=== PATIENT | female | born 1935 | race Caucasian/White ===

== ENCOUNTER → 2016-07-17 | Outpatient (CLI) | payer MEDICARE ==
[~2016-07-17] MED LIST: ALDACTONE25 MG; ALDACTONE25 MG PO; ALIGN4 MG PO; ARTIFICIAL TEAR15 M5 OPHTH; ASPIR-LOW81 MG PO; ASPIRIN (CHILDR81 MG; BODY PO; CALCIUM 600 +1 EA10 PO; CLEOCIN150 MG PO; CLIMARA0.0375 MG; ERY-TAB250 MG; ERY-TAB250 MG PO; ESTRACE(ESTRADIO1 MG; ESTRACE(ESTRADIO1 MG PO; EXCILON1 EAC2; EXELON1 EAC1 TRANS; FISH OIL 1,0001 EAC1 PO; FLEXERIL10 MG; GRISEOFULV125 MG/5 M; GRISEOFULV125 MG/5 M PO; HAIR PO; LASIX20 MG PO; MAG-OX-400(241400 MG PO; MIRTAZAPINE7.5 MG; MULTIVITAMINS1 EAC2 PO; MYCOSTATIN OINT30 GM TOP; OCEAN NASAL) (A44 ML NOSE; PERCOCET 5-3251 EACH PO; POLY VI SOL DRO50 ML; PRINIVIL (ZESTR20 MG; PRINIVIL (ZESTR20 MG PO; PRINIVIL (ZESTRI5 MG PO; PROTONIX40 MG PO; REMERON 30 MG30 MG; REMERON 30 MG30 MG PO; RESTASIS1 EACH; RESTASIS1 EACH OPHTH; THERA-VITE W/ B1 TAB; TOPROL XL25 MG PO; TUMS REGULAR ST1 TAB; TYLENOL ARTHRI650 MG PO; TYLENOL)(FEVERA80 MG; TYLENOL325 MG; ULTRAM50 MG; ULTRAM50 MG PO; VANCOCIN HCL250 MG PO; VANCOCIN ORAL250 MG PO; VITAMIN D-32000 UNI1; VITAMIN D2000 UNIT PO; VITAMIN D3400 UNIT; ZESTRIL2.5 MG; ZETIA10 MG; ZOCOR10 MG; ZOCOR40 MG; ZOCOR40 MG PO; ZYLOPRIM300 MG; ZYLOPRIM300 MG PO; [UNRECOGNIZED DRUG - OTHER] PO
== END | disposition disaster alternative care site (69) ==
LOC: GRAD 12:44
DX: M79.671 Pain in right foot (principal); R60.9 Edema, unspecified; M79.89 Other specified soft tissue disorders

== ENCOUNTER 2016-07-21 13:00 | Inpatient (IN) | payer MEDICARE ==
[~2016-07-21] VITALS: Ht 170.2 cm; Wt 80.0 kg
--- NOTE | ~2016-07-21 | CON ---
PATIENT'S NAME: ALLYN JARRELL [facility] AGE: 81 Y [address] ROOM: [place] [address] LOCATION: GPCU ADMIT DATE: 07/22/2016 Consultation DISCHARGE DATE: FAMILY PHYSICIAN: Low Jennings MD ATTENDING PHYSICIAN: SHANNON KEARNEY DATE OF CONSULTATION: 07/22/2016 REFERRING PHYSICIAN: NORBERTO Zhu. REASON FOR VISIT: Right posterior thigh wound. HISTORY OF PRESENT ILLNESS: This is an 80-year-old female patient who was admitted to [facility] with right foot gangrene. She is [facility] to [facility] and was last there in August 2012. She has a history of chronic venous insufficiency, lower leg edema, polio, fibromyalgia, hypertension, and hyperlipidemia. She has worn Unna boots in the past. She currently has no venous ulcers. She normally wears thigh-high Jobst compression stockings. She is nonambulatory due to polio and uses a motorized scooter. She has a leather chair cushion to her wheelchair. She is unaware that she has scabbing to her right ischial tuberosity area. She is continent of bowel and bladder. She is denying fevers, chills, or sweats. She denies chest pain or shortness of breath. She admits to a good oral intake. She is nondiabetic. She admits to fungal rashes in the past and is currently performing no treatment to her breast and groin rash. She is a nonsmoker. She denies nausea or vomiting. She reports no pain. PAST MEDICAL HISTORY: Polio, fibromyalgia, hypertension, hypercholesteremia, UT, lower leg edema, and chronic venous insufficiency. PAST SURGICAL HISTORY: Hysterectomy, bilateral carpal tunnel surgery, right rotator cuff repair x2, bilateral knee surgeries, bilateral foot surgery, tonsillectomy, ORIF to right hip, and right foot transmetatarsal amputation. FAMILY HISTORY: The patient's father of an UT. SOCIAL HISTORY: The patient lives with her son in [place]. She denies alcohol or tobacco PATIENT'S NAME: ALLYN JARRELL [facility] AGE: 81 Y [address] ROOM: [place] [address] LOCATION: GPCU ADMIT DATE: 07/22/2016 Consultation DISCHARGE DATE: FAMILY PHYSICIAN: Low Jennings MD ATTENDING PHYSICIAN: SHANNON KEARNEY use. ALLERGIES: PENICILLIN, ACETAMINOPHEN, AND HYDROCODONE. CURRENT MEDICATIONS: Please refer to the medication administration record. REVIEW OF SYSTEMS: All are negative except as mentioned above in the HPI. PHYSICAL EXAMINATION: VITAL SIGNS: Temperature 96.7, pulse 76, respirations 16, blood pressure 83/55, and pulse ox 95% on room air. Height is 5 feet 7 inches and weight 75.0 kg. GENERAL: The patient is alert and oriented x3, in no acute distress. HEENT: Head: Normocephalic and atraumatic. Oral mucosa intact. No teeth noted. NECK: Supple. CARDIOVASCULAR: Regular rate and rhythm. Hypotension noted. ABDOMEN: Nontender. EXTREMITIES: +1 pedal pulses. No edema noted. Extremities are warm to touch. Capillary refill intact. SKIN: Red rash with satellite lesions to right breast fold. Red rash noted to bilateral groin folds, right worse than the left. Right ischial tuberosity has intact black scabbing with scarring, blanchable redness, and skin shearing. No induration or fluctuance noted. No drainage noted. Left fifth toe has blanchable redness. Dry flakes to feet. Left heel intact. LABORATORY DATA: White blood cell count 11.0, hemoglobin 11.8, hematocrit 36.9, and platelets 240. ASSESSMENT AND PLAN: Again, this is an 80-year-old female patient who is admitted to [facility] with right foot gangrene. She is status post right foot transmetatarsal amputation by Dr. Kearney. Wound Care consult to evaluate and assess right ischial tuberosity scabbing. 1. Right ischial tuberosity unstageable pressure ulcer present on admission. The patient has evidence of scarring. Most likely, this was an open pressure ulcer that is resolving. There is evidence of shear/friction. I was able to gently remove some of the scabbing with a gloved finger and no wound underneath. No induration or fluctuance noted. Scabbing may resolve or may demarcate into an open wound. For now, we will treat the underlying cause and initiate pressure redistribution measures. Nursing is to turn the patient on bed every 2 hours, side to side. Nursing is PATIENT'S NAME: ALLYN JARRELL [facility] AGE: 81 Y [address] ROOM: [id number] [place] [address] LOCATION: GPCU ADMIT DATE: 07/22/2016 Consultation DISCHARGE DATE: FAMILY PHYSICIAN: Low Jennings MD ATTENDING PHYSICIAN: SHANNON KEARNEY also to apply Aloe Indore q.i.d. and p.r.n. stooling to the site. 2. Candidiasis to breasts and groin folds. We will treat with nystatin ointment x14 days. Washcloth between folds p.r.n. 3. Chronic venous insufficiency. No ulcerations noted at this time. Wearing thigh-high stockings, continue use. 4. Right foot gangrene. Status post amputation by Dr. Kearney. I would like to thank Mikala Henry for this consultation. PAULINA BAY APRN FOR MD ELO CONLEY/louie /[id number] d: 07/22/16 1557 t: 07/29/161937, CONSULTATION REPORT
--- NOTE | ~2016-07-21 | OR ---
PATIENT'S NAME: ALLYN JARRELL [facility] AGE: 80 Y [address] ROOM: [place] [id number] LOCATION: [facility] ADMIT DATE: 07/22/2016 OR/Procedure Report DISCHARGE DATE: FAMILY PHYSICIAN: Low Jennings MD ATTENDING PHYSICIAN: SHANNON KEARNEY SURGEON: Shannon Kearney MD DIRECTOR OF SUSTAINABLE DESIGN: Shaan Coates PA-C DATE OF PROCEDURE: 07/22/2016 PREOPERATIVE DIAGNOSIS: Right forefoot wet gangrene. POSTOPERATIVE DIAGNOSIS: Right forefoot wet gangrene. PROCEDURE: 1. Right transmetatarsal amputation of the foot. 2. Use of intraoperative fluoroscopy, less than 1 hour. ANESTHESIA: General endotracheal anesthesia and peripheral nerve block. EBL: Minimal. TOURNIQUET: Right proximal thigh at 250 mmHg. SPECIMEN: Right transmetatarsal amputation of the foot. COMPLICATIONS: None. DISPOSITION: Stable, in PACU. COUNTS: All counts were correct. INDICATIONS: Ms. Jarrell is a pleasant 80-year-old female with right forefoot gangrene. The risks, benefits, and alternatives of pursuing a surgical intervention were discussed with the patient in detail. The patient elected to proceed with surgery as noted above. I marked the right lower extremity indicating the correct surgical site. Anesthesia was consulted for their perioperative evaluation of the patient. OPERATIVE REPORT IN DETAIL: The patient was taken to the holding area of the Operating Room. Time-out was performed. General endotracheal anesthesia was administered. Clindamycin antibiotic was administered for perioperative prophylaxis. The right lower extremity was then prepped and draped in sterile fashion. I turned my attention to the right foot. An Esmarch was used to exsanguinate PATIENT'S NAME: ALLYN JARRELL [facility] AGE: 80 Y [address] ROOM: [address] [address] LOCATION: [facility] ADMIT DATE: 07/22/2016 OR/Procedure Report DISCHARGE DATE: FAMILY PHYSICIAN: Low Jennings MD ATTENDING PHYSICIAN: SHANNON KEARNEY the limb. The tourniquet was inflated to 250 mmHg. I turned my attention to the forefoot. I began with a fish-mouth incision dorsally and plantarly through skin and subcutaneous tissues down to the bone. I identified the midportion of the metatarsals. I performed transmetatarsal amputations of the first to fifth metatarsals. I removed the forefoot and sent it for pathology. The wounds were copiously irrigated with normal sterile saline solution via pulsatile lavage using 3 L of fluid. Once the wound was clean, it was closed in layers using 2-0 nylon suture. I did have a good flap to cover the forefoot. I introduced intraoperative fluoroscopy. Prior to the amputation, I identified the forefoot. I then took an x-ray post-amputation indicating a successful transmetatarsal amputation of the right foot. Sterile dressings were placed over the flap that included Xeroform followed by 4x4, Webril, and Lazaro. The tourniquet was then let down. The patient was then transferred from the operating room table on the stretcher and extubated. She was brought to the recovery room in stable condition. There were no intraoperative complications noted. Of note, my PA, Shaan Coates PA-C, played an integral role in the intraoperative care of this patient. This included preoperative positioning, intraoperative expert retraction, and closing and dressing functions. IMPRESSION: The patient is status post noted procedures above. PLAN: The patient will be nonweightbearing on the right lower extremity in a soft dressing. The patient is a non-ambulator at baseline. We will have her on mechanical electric wheelchair, previous history of polio. Antibiotics will be administered postoperatively per routine. The hospitalist will be consulted for management of her medical comorbidities. DVT prophylaxis will be started on postoperative day 1. I will continue to monitor the patient closely while she is hospitalized. MD PANKAJ WONG/louie /[id number] d: 07/22/16 1049 t: 07/22/16 1154, OPERATIVE SUMMARY
--- NOTE | ~2016-07-21 | DS ---
PATIENT'S NAME: ALLYN JARRELL [facility] AGE: 81 Y [address] ROOM: [id number] [place], [place] [address] LOCATION: GPCU ADMIT DATE: 07/22/2016 Discharge Summary DISCHARGE DATE: 07/25/2016 FAMILY PHYSICIAN: Low Jennings MD ATTENDING PHYSICIAN: Shannon Kearney ADMITTING DIAGNOSIS: Right forefoot wet gangrene. DISCHARGE DIAGNOSIS: Right forefoot wet gangrene. SECONDARY DIAGNOSES: Anemia, benign essential hypertension, deep venous insufficiency, hyperlipidemia, hyperuricemia, post-polio syndrome, vitamin D deficiency, mild cognitive impairment, allergic rhinitis, and osteoporosis. CONSULTATION: Consultation were to the Hospital Service for medical management, to Wound Care for right posterior thigh wound, and Speech Therapy for evaluation of speech. PROCEDURES: The patient underwent the following procedure on July 22, [address] Kearney right transmetatarsal amputation of the foot. HISTORY OF PRESENT ILLNESS: The patient is an 81-year-old female who was seen by Dr. Kearney in the office for right forefoot gangrene for possible surgical intervention. At the office, it was determined the patient did need a right forefoot amputation and the risks and benefits were discussed at that time and surgery was scheduled. HOSPITAL COURSE: The patient underwent the above mentioned procedure. She did tolerate it well. During admission, she did have some hypotension that was managed by the Hospitalist Service. She also had some what was diagnosed with delirium on her dementia. Speech Therapy did evaluate her, medical management did continue to monitor closely during her hospitalization. Wound Care did treat her for the right posterior thigh wound. The patient had adequate pain control during her admission. On July 25, 2016, it was determined that the patient was stable for discharge home and was discharged home with her family at that time. DISCHARGE INSTRUCTIONS: The patient was discharged home to be nonweightbearing of her right lower extremity. The patient is wheelchair bound due to her prior medical history. She is to eat a cardiac diet. She was discharged home with Home Health. She is to follow up with Dr. Kearney on August 07, 2016 at 10:20. MEDICATIONS: Stopped medications spironolactone, erythromycin, estradiol, and omega-3 fatty acids, and the patient is to hold her tramadol while taking Percocet. New medication Percocet 5/325 1 tab every 6 hours as needed for pain. Otherwise, the patient PATIENT'S NAME: ALLYN JARRELL [facility] AGE: 81 Y [address] ROOM: [id number] [place] [id number] LOC[facility] ADMIT DATE: 07/22/2016 Discharge Summary DISCHARGE DATE: 07/25/2016 FAMILY PHYSICIAN: Low Jennings MD ATTENDING PHYSICIAN: Shannon Kearney is to continue her preadmission medications as instructed per her Internal Medicine doctor. DISCHARGE STATUS: Good. FLAVIO PERSAUD PA-C FOR SHANNON KEARNEY MD TJW/modl /[id number] d: 08/06/16 0345 t: 08/18/16 0830, DISCHARGE SUMMARY
[~2016-07-21 13:00] MED LIST changes: -ALDACTONE25 MG PO; -ALIGN4 MG PO; -ARTIFICIAL TEAR15 M5 OPHTH; -ASPIR-LOW81 MG PO; -BODY PO; -CALCIUM 600 +1 EA10 PO; -CLEOCIN150 MG PO; -ERY-TAB250 MG PO; -ESTRACE(ESTRADIO1 MG PO; -EXELON1 EAC1 TRANS; -FISH OIL 1,0001 EAC1 PO; -GRISEOFULV125 MG/5 M PO; -HAIR PO; -LASIX20 MG PO; -MAG-OX-400(241400 MG PO; -MULTIVITAMINS1 EAC2 PO; -MYCOSTATIN OINT30 GM TOP; -OCEAN NASAL) (A44 ML NOSE; -PERCOCET 5-3251 EACH PO; -PRINIVIL (ZESTR20 MG PO; -PRINIVIL (ZESTRI5 MG PO; -PROTONIX40 MG PO; -REMERON 30 MG30 MG PO; -RESTASIS1 EACH OPHTH; -TOPROL XL25 MG PO; -TYLENOL ARTHRI650 MG PO; -ULTRAM50 MG PO; -VANCOCIN HCL250 MG PO; -VANCOCIN ORAL250 MG PO; -VITAMIN D2000 UNIT PO; -ZOCOR40 MG PO; -ZYLOPRIM300 MG PO; -[UNRECOGNIZED DRUG - OTHER] PO
[2016-07-21] MEDS ORDERED: ALDACTONE25 MG PO (16:36)
[2016-07-21] MEDS ORDERED: ULTRAM50 MG PO (16:36)
[2016-07-21] MEDS ORDERED: ZYLOPRIM300 MG PO (16:37)
[2016-07-21] MEDS ORDERED: PRINIVIL (ZESTR20 MG PO (16:37)
[2016-07-21] MEDS ORDERED: ERY-TAB250 MG PO (16:37)
[2016-07-21] MEDS ORDERED: ESTRACE(ESTRADIO1 MG PO (16:38)
[2016-07-21] MEDS ORDERED: ASPIR-LOW81 MG PO (16:38)
[2016-07-21] MEDS ORDERED: GRISEOFULV125 MG/5 M PO (16:39)
[2016-07-21] MEDS ORDERED: REMERON 30 MG30 MG PO (16:40)
[2016-07-21] MEDS ORDERED: ZOCOR40 MG PO (16:40)
[2016-07-21] MEDS ORDERED: VITAMIN D2000 UNIT PO ×2 (16:41)
[2016-07-21] MEDS ORDERED: [UNRECOGNIZED DRUG - OTHER] PO (16:41)
[2016-07-21] MEDS ORDERED: BODY PO (16:41)
[2016-07-21] MEDS ORDERED: HAIR PO (16:41)
[2016-07-21] MEDS ORDERED: FISH OIL 1,0001 EAC1 PO (16:42)
[2016-07-21] MEDS ORDERED: CALCIUM 600 +1 EA10 PO (16:42)
[2016-07-21] MEDS ORDERED: MULTIVITAMINS1 EAC2 PO (16:43)
[2016-07-21] MEDS ORDERED: EXELON1 EAC1 TRANS (16:44)
[2016-07-21] MEDS ORDERED: RESTASIS1 EACH OPHTH (16:45)
[2016-07-22 07:06] LABS: BASOPHIL # 0.1 K/uL (0.0-0.2); BASOPHIL % 0.7 %; EOSINOPHIL # 0.2 K/uL (0.0-0.5); HEMATOCRIT 36.9 % (30.0-46.0); HEMOGLOBIN 11.8 g/dL (10.0-15.0); IMMATURE GRANULOCYTE % 0.4 %; LYMPHOCYTE # 2.5 K/uL (0.8-4.0); LYMPHOCYTE % 22.5 %; MCH 28.6 pg (27.0-34.0); MCV 89.3 fl (83.0-98.0); MONOCYTE # 0.6 K/uL (0.0-1.0); MONOCYTE % 5.8 %; MPV 10.1 fl (9.4-12.4); NEUTROPHIL # (ANC) 7.6 K/uL (1.8-7.8); NEUTROPHIL % 68.6 %; NRBC % 0 /100WBC (0-0.00); PLATELET COUNT 240 K/uL (150-450); RBC 4.13 M/uL (3.00-5.00); RDW-CV 15.2 % (11.9-14.6)
[2016-07-22 20:23] LABS: BASOPHIL % 0.2 %; HEMOGLOBIN 9.4 g/dL (10.0-15.0); IMMATURE GRANULOCYTE # 0.1 K/uL (0.0-0.3); IMMATURE GRANULOCYTE % 0.4 %; LYMPHOCYTE # 1.2 K/uL (0.8-4.0); LYMPHOCYTE % 9.5 %; MCH 28.7 pg (27.0-34.0); MCHC 32.5 gm/dL (32.0-36.5); MCV 88.1 fl (83.0-98.0); MONOCYTE # 0.6 K/uL (0.0-1.0); MONOCYTE % 5.3 %; MPV 10.3 fl (9.4-12.4); NEUTROPHIL # (ANC) 10.3 K/uL (1.8-7.8); NEUTROPHIL % 84.6 %; NRBC % 0 /100WBC (0-0.00); PLATELET COUNT 192 K/uL (150-450); RBC 3.28 M/uL (3.00-5.00); WBC 12.2 K/uL (4.0-11.0)
[2016-07-22 20:26] LABS: HEMATOCRIT 28.9 % (30.0-46.0)
[2016-07-22 20:38] LABS: ALBUMIN 2.7 gm/dL (3.5-5.0); ANION GAP 12.3 (10.0-19.0); CALCIUM 8.4 mg/dL (8.5-10.5); CREATININE 1.1 mg/dL (0.5-1.1); MAGNESIUM 1.7 mg/dL (1.3-2.6); PHOSPHORUS 2.4 mg/dL (2.5-4.9); POTASSIUM 5.3 mMol/L (3.7-5.1)
[2016-07-23 01:06] LABS: BILIRUBIN URINE NEGATIVE (NEGATIVE); BLOOD URINE NEGATIVE /UL (NEGATIVE); GLUCOSE URINE 250 mg/dL (NEGATIVE); KETONE URINE NEGATIVE (NEGATIVE); LEUKOCYTES URINE 25 /UL (NEGATIVE); NITRITE URINE NEGATIVE (NEGATIVE); PROTEIN URINE NEGATIVE (NEGATIVE); UROBILINOGEN URINE NORMAL (NORMAL)
[2016-07-23 01:09] LABS: COLOR URINE YELLOW (YELLOW); TURBIDITY URINE 1+ (CLEAR)
[2016-07-23 01:45] LABS: BACTERIA URINE MODERATE (NEGATIVE); RBC URINE NEGATIVE #/HPF (NEGATIVE)
[2016-07-23 05:57] LABS: HEMATOCRIT 28.5 % (30.0-46.0); HEMOGLOBIN 9.1 g/dL (10.0-15.0); MCH 28.6 pg (27.0-34.0); MCHC 31.9 gm/dL (32.0-36.5); MCV 89.6 fl (83.0-98.0); PLATELET COUNT 186 K/uL (150-450); RBC 3.18 M/uL (3.00-5.00); RDW-CV 15.1 % (11.9-14.6); WBC 13.7 K/uL (4.0-11.0)
[2016-07-23 05:58] LABS: MPV 10.2 fl (9.4-12.4); NEUTROPHIL # (ANC) 9.7 K/uL (1.8-7.8)
[2016-07-23 05:59] LABS: BASOPHIL % 0.3 %; EOSINOPHIL # 0.1 K/uL (0.0-0.5); IMMATURE GRANULOCYTE # 0.1 K/uL (0.0-0.3); IMMATURE GRANULOCYTE % 0.4 %; LYMPHOCYTE # 2.7 K/uL (0.8-4.0); LYMPHOCYTE % 19.7 %; MONOCYTE % 7.6 %
[2016-07-23 06:03] LABS: ALBUMIN 2.8 gm/dL (3.5-5.0); ANION GAP 12.5 (10.0-19.0); CALCIUM 8.3 mg/dL (8.5-10.5); CREATININE 0.9 mg/dL (0.5-1.1); MAGNESIUM 1.7 mg/dL (1.3-2.6); PHOSPHORUS 2.7 mg/dL (2.5-4.9); POTASSIUM 4.5 mMol/L (3.7-5.1)
[2016-07-25] MEDS ORDERED: OCEAN NASAL) (A44 ML NOSE (13:36)
[2016-07-25] MEDS ORDERED: PERCOCET 5-3251 EACH PO (13:37)
[2016-07-25] MEDS ORDERED: CLEOCIN150 MG PO (13:41)
[2016-07-25] MEDS ORDERED: MYCOSTATIN OINT30 GM TOP (14:09)
[2016-07-25] MEDS ORDERED: TYLENOL ARTHRI650 MG PO (14:11)
== END 2016-07-25 15:15 | disposition home health service (06) | DRG 239 ==
LOC: G3N 07-22 06:40 → GPCU 07-23 02:00
PROVIDERS: Internal Medicine; ADMIT Orthopaedic Surgery Adult Reconstructive Orthopaedic Surgery
DX: I96 Gangrene, not elsewhere classified (principal); R57.1 Hypovolemic shock; L89.310 Pressure ulcer of right buttock, unstageable; B37.89 Other sites of candidiasis; L03.115 Cellulitis of right lower limb; D64.9 Anemia, unspecified; E79.0 Hyperuricemia without signs of inflammatory arthritis and tophaceous disease; G14 Postpolio syndrome; I10 Essential (primary) hypertension; I87.2 Venous insufficiency (chronic) (peripheral)
CPT/HCPCS: C1751; J1644; J2270; J3370; J3480; J7030; J7040; J7050; J7120

== ENCOUNTER 2016-08-28 13:07 | Inpatient (IN) | payer MEDICARE ==
[~2016-08-28] VITALS: Ht 165.1 cm; Wt 67.9 kg
--- NOTE | ~2016-08-28 | DS ---
PATIENT'S NAME: ALLYN JARRELL [facility] AGE: 81 Y [address] ROOM: [place] [address] LOCATION: GPCU ADMIT DATE: 08/28/2016 Discharge Summary DISCHARGE DATE: FAMILY PHYSICIAN: Low Jennings MD ATTENDING PHYSICIAN: Cj Venegas TENTATIVE DATE OF DISCHARGE: 09/01/2016. PRIMARY DIAGNOSES: 1. Clostridium difficile colitis. 2. Acute encephalopathy, infection related. 3. Moderate protein-calorie malnutrition. 4. Right foot gangrene, status post recent transmetatarsal amputation. 5. Post-polio syndrome. 6. Essential hypertension. 7. Generalized weakness. OPERATIONS/PROCEDURES: None. HISTORY OF PRESENT ILLNESS/REASON FOR ADMISSION: Please refer to the H and P dictated on 08/28/[address] Venegas. HOSPITAL COURSE: The patient was admitted to the hospital as noted above with a presumptive diagnosis of C. diff colitis. She was treated with supportive cares including IV fluids, and placed on antibiotic therapy with oral vancomycin. She was noted to be significantly physically deconditioned. She did receive supportive care and physical therapy, occupational therapy. Because of profuse watery diarrhea, Flexi-Seal was placed. By the end of the 36-hour zan, this was able to be discontinued. Her clinical condition improved relatively quickly. She was tolerating regular diet. Her stools subsided, and by the third day, she had one formed stool. She was still significantly deconditioned, weak, and tolerating only modest diet. It was felt she would probably benefit from some continued physical therapy, occupational therapy. After discussing with the patient's son, they felt strongly that the patient should return home, and they refused to consider any sort of group home options for her. Care Management was requested to seek home health care options. This has not yet been performed as of this dictation but planned for 09/01/2016. DISCHARGE INSTRUCTIONS: PATIENT'S NAME: ALLYN JARRELL [facility] AGE: 81 Y [address] ROOM: [place] [address] LOCATION: GPCU ADMIT DATE: 08/28/2016 Discharge Summary DISCHARGE DATE: FAMILY PHYSICIAN: Low Jennings MD ATTENDING PHYSICIAN: Cj Venegas DIET: Regular as tolerated. ACTIVITY: As tolerated. She will have Home Health with home physical therapy. MEDICATIONS: 1. Vancomycin 125 mg p.o. q.6 hours through 09/07/2016. 2. Acetaminophen 650 to 1300 mg p.o. q.8 hours p.r.n. pain or fever. 3. Allopurinol 150 mg p.o. daily. 4. Aspirin 81 mg p.o. daily. 5. Vitamin D3 2000 units p.o. daily. 6. Restasis ophthalmic drops one drop each eye b.i.d. 7. Griseofulvin microsize 250 mg p.o. b.i.d. 8. Lisinopril 5 mg p.o. daily. 9. Mirtazapine 30 mg p.o. q.h.s. 10. Multivitamin daily. 11. Exelon patch applied topically every 24 hours. 12. Simvastatin 40 mg p.o. q.h.s. 13. Tramadol 50 mg to 100 mg p.o. b.i.d. p.r.n. pain. FOLLOWUP: She will follow up with Dr. Jennings in 7 to 10 days. CONDITION ON DISCHARGE: Fair. Total time spent on discharge process 45 minutes. MD NEL CONLEY/louie /[id number] d: 09/01/167 t: 09/11/16 1726, DISCHARGE SUMMARY
--- NOTE | ~2016-08-28 | ER ---
PATIENT'S NAME: ALLYN JARRELL [facility] AGE: 81 Y [address] ROOM: [place] [address] LOCATION: GPCU ADMIT DATE: 08/28/2016 ER/Outpatient Report DISCHARGE DATE: FAMILY PHYSICIAN: Low Jennings MD ATTENDING PHYSICIAN: YANNI HAYDEN Time Seen: 1315 hours. CHIEF COMPLAINT: Diarrhea. HISTORY OF PRESENT ILLNESS: The patient is an 81-year-old nonambulatory female who presented with history of severe diarrhea over the last 2 to 4 days. The patient usually sees Dr. Jennings who recommended that she come to the emergency room to be checked for C. diff. The patient had a toe amputation about a month ago and was on antibiotics for about a week. MEDICAL HISTORY: ALLERGIES: TYLENOL AND VICODIN. CURRENT MEDICATIONS: See her copied list. MEDICAL ISSUES: Include several chronic problems, include coronary artery disease, previous acute infection, reflux, extrinsic asthma, osteoporosis, hyperlipidemia, hypertension, chronic migraines, osteoarthritis, post-polio syndrome, history of rheumatic fever. Also refer to attached previous history from Dr. Jennings. SOCIAL HISTORY: Nonsmoker. The patient lives with two sons in [facility]. REVIEW OF SYSTEMS: GENERAL: The patient is somewhat of a poor historian. HEAD/EENT: No recent headaches. Just complained of a dry mouth. RESPIRATORY: No recent cough. No shortness of breath. GASTROINTESTINAL: Includes diarrhea, has been mostly water, 10 to 12 times a day. GENITOURINARY: Some incontinence. MUSCULOSKELETAL: She has a dressing on the right lower leg as a result of a recent toe amputation. PATIENT'S NAME: ALLYN JARRELL [facility] AGE: 81 Y [address] ROOM: [place] [address] LOCATION: GPCU ADMIT DATE: 08/28/2016 ER/Outpatient Report DISCHARGE DATE: FAMILY PHYSICIAN: Low Jennings MD ATTENDING PHYSICIAN: YANNI HAYDEN PHYSICAL EXAMINATION: VITAL SIGNS: Blood pressure 99/53, her temperature was 97, her pulse 94, respiratory rate 20, O2 saturations 96%. GENERAL APPEARANCE: Elderly female. Alert but somewhat confused to time and place. HEAD: There is mild temporal wasting noted, otherwise, atraumatic. EYES: Pupils appeared equal. Sclerae were clear. NOSE: Septum midline. MOUTH: Tongue was dry. Posterior pharynx clear. NECK: No adenopathy. LUNGS: Good breath sounds bilaterally. HEART: Tones distant. ABDOMEN: Soft and nontender. SKIN: Turgor appeared somewhat poor. MUSCULOSKELETAL: Has a dressing, right lower leg to about mid calf. LABORATORY DATA AND X-RAYS: Her C. diff was positive. Her stool was negative white cells, negative blood. CBC; white count was elevated at 14.4, hemoglobin 11.8, ANC was at 11.2. CMS; potassium low at 3.4, glucose high at 1.6, her BUN was high at 27. Albumin low at 3.1. ASSESSMENT: 1. Diarrhea secondary to a Clostridium difficile infection. 2. Mild dehydration. 3. History of coronary artery disease. 4. Degenerative arthritis. 5. Post polio syndrome and nonambulatory. 6. Hyperlipidemia. PLAN: I did talk with Dr. Jennings who thought that she probably need to be admitted for treatment of her C. diff. The patient will be admitted by the Hospitalist Service. The patient here in the emergency room, IV was started, she was given a bolus of 500 and then fluids to run at 150 mL per hour. NORBERTO BUI FOR MD NELSON LAWRENCE/louie /[id number] d: 08/28/16 2353 t: 09/05/16 1926, OUTPATIENT REPORT
--- NOTE | ~2016-08-28 | HP ---
PATIENT'S NAME: MANE JARRELLA Nayeli [facility] AGE: 81 Y [address] ROOM: [place] [address] LOCATION: GPCU ADMIT DATE: 08/28/2016 History & Physical DISCHARGE DATE: FAMILY PHYSICIAN: Low Jennings MD ATTENDING PHYSICIAN: YANNI HAYDEN DATE OF SERVICE: CHIEF COMPLAINT: Diarrhea. HISTORY OF PRESENT ILLNESS: An 81-year-old very pleasant lady, polio survivor, wheelchair dependent, who recently underwent a right transmetatarsal amputation secondary to gangrene. She was at home and started experiencing diarrhea for the last 4-5 days multiple episodes going every 15-20 minutes, getting worse associated with some chills and feeling of being unwell. She denied any headache, any trouble with the eyes, any trouble swallowing, any chest pain, any shortness of breath, any cough, sputum production, any abdominal pain, any burning on urination, or any extremity swelling. She denied any orthopnea or any PND. REVIEW OF SYSTEMS: All other systems were reviewed and were negative except what is mentioned in the HPI. PAST MEDICAL HISTORY: Significant for essential hypertension, hyperuricemia, wheelchair dependency, polio survivor, right foot gangrene, status post amputation, venous insufficiency. ALLERGIES: NO KNOWN DRUG ALLERGIES. MEDICATIONS: Being reconciled right now. FAMILY HISTORY: Significant for diabetes in both mom and dad. Dad had of massive myocardial infarction. SOCIAL HISTORY: Never a smoker. No alcohol or drug abuse. Lives at home with son. PHYSICAL EXAMINATION: VITAL SIGNS: On admission to the hospital were 99/53, temperature of 97, PATIENT'S NAME: ALLYN JARRELL [facility] AGE: 81 Y [address] ROOM: [place] [address] LOCATION: GPCU ADMIT DATE: 08/28/2016 History & Physical DISCHARGE DATE: FAMILY PHYSICIAN: Low Jennings MD ATTENDING PHYSICIAN: YANNI HAYDEN respiratory rate of 20, pulse of 94. GENERAL: No acute distress. Alert and oriented x3. HEENT: Head: Atraumatic, normocephalic. Eyes: Nonicteric. No pallor. Oropharynx: Dry mucous membranes. CARDIOVASCULAR: S1 and S2. No murmur or gallops heard. LUNGS: Clear to auscultation bilaterally. ABDOMEN: Soft, nontender, nondistended, bowel sounds are present. EXTREMITIES: No clubbing, cyanosis, or edema. Right foot is surgically dressed. PSYCH: Normal affect, mood, and speech. MUSCULOSKELETAL: No muscle tenderness or joint swelling noted. SKIN: No bruises or rashes noted. ENDOCRINE: No thyromegaly appreciated, no stigmata of [place] disease noted. LABORATORY DATA: Initial lab work was done, which did show a CBC significant for white count of 14. BMP was impressive for potassium of 3.4. She also has JARED with a GFR of 48 at this point. ASSESSMENT: 1. Clostridium difficile colitis. 2. Hypokalemia. 3. Acute kidney injury secondary to dehydration. 4. Essential hypertension, right foot gangrene, status post amputation. 5. Hyperuricemia. 6. Wheelchair dependency. PLAN: We are going to start the patient on vancomycin given the low GFR as well as rising leukocytosis. We are going to treat with p.o. vancomycin. Intravenous fluid resuscitation. Isolation. Replace potassium. DVT prophylaxis, physical therapy, and occupational therapy. Zofran for nausea. We will follow this patient. MD SCOTT PADILLA/louie /[id number] D: [id number] T: [id number] HISTORY & PHYSICAL
[~2016-08-28 13:07] MED LIST changes: +ALDACTONE25 MG PO; +ASPIR-LOW81 MG PO; +BODY PO; +CALCIUM 600 +1 EA10 PO; +CLEOCIN150 MG PO; +ERY-TAB250 MG PO; +ESTRACE(ESTRADIO1 MG PO; +EXELON1 EAC1 TRANS; +FISH OIL 1,0001 EAC1 PO; +GRISEOFULV125 MG/5 M PO; +HAIR PO; +MULTIVITAMINS1 EAC2 PO; +MYCOSTATIN OINT30 GM TOP; +OCEAN NASAL) (A44 ML NOSE; +PERCOCET 5-3251 EACH PO; +PRINIVIL (ZESTR20 MG PO; +REMERON 30 MG30 MG PO; +RESTASIS1 EACH OPHTH; +TYLENOL ARTHRI650 MG PO; +ULTRAM50 MG PO; +VITAMIN D2000 UNIT PO; +ZOCOR40 MG PO; +ZYLOPRIM300 MG PO; +[UNRECOGNIZED DRUG - OTHER] PO
[2016-08-28 13:30] LABS: BASOPHIL # 0.1 K/uL (0.0-0.2); BASOPHIL % 0.4 %; EOSINOPHIL # 0.1 K/uL (0.0-0.5); EOSINOPHIL % 0.6 %; HEMATOCRIT 36.1 % (30.0-46.0); HEMOGLOBIN 11.8 g/dL (10.0-15.0); IMMATURE GRANULOCYTE # 0.1 K/uL (0.0-0.3); IMMATURE GRANULOCYTE % 0.4 %; LYMPHOCYTE # 1.5 K/uL (0.8-4.0); LYMPHOCYTE % 10.7 %; MCH 28.8 pg (27.0-34.0); MCHC 32.7 gm/dL (32.0-36.5); MONOCYTE # 1.3 K/uL (0.0-1.0); MONOCYTE % 9.2 %; MPV 10.9 fl (9.4-12.4); NEUTROPHIL # (ANC) 11.2 K/uL (1.8-7.8); NEUTROPHIL % 78.7 %; NRBC % 0 /100WBC (0-0.00); PLATELET COUNT 189 K/uL (150-450); RDW-CV 14.5 % (11.9-14.6); WBC 14.2 K/uL (4.0-11.0)
[2016-08-28 13:47] LABS: ALBUMIN 3.1 gm/dL (3.5-5.0); CALCIUM 9.4 mg/dL (8.5-10.5); CREATININE 1.1 mg/dL (0.5-1.1); TOTAL BILIRUBIN 0.4 mg/dL (0.0-1.5)
[2016-08-28 13:48] LABS: ANION GAP 15.4 (10.0-19.0); POTASSIUM 3.4 mMol/L (3.7-5.1)
--- NOTE | 2016-08-29 03:59 | NUR ---
[id number] 81yr old female presents to ER with diarrhea that has been going on for 2 days. Patient had infected toes amputated by Dr Calix. Patient had been on antibiotics and was tested for c diff, which came back positive. Patient is only oriented to self and very forgetful. Dr Venegas admitted as MSU status, orders received.
[2016-08-29 07:13] LABS: BASOPHIL % 0.4 %; EOSINOPHIL # 0.1 K/uL (0.0-0.5); HEMATOCRIT 31.5 % (30.0-46.0); HEMOGLOBIN 10.4 g/dL (10.0-15.0); IMMATURE GRANULOCYTE # 0.1 K/uL (0.0-0.3); IMMATURE GRANULOCYTE % 0.5 %; LYMPHOCYTE # 1.5 K/uL (0.8-4.0); LYMPHOCYTE % 13.3 %; MCH 29.2 pg (27.0-34.0); MCV 88.5 fl (83.0-98.0); MONOCYTE # 0.9 K/uL (0.0-1.0); MONOCYTE % 7.9 %; MPV 10.7 fl (9.4-12.4); NEUTROPHIL # (ANC) 8.7 K/uL (1.8-7.8); NEUTROPHIL % 76.9 %; NRBC % 0 /100WBC (0-0.00); RBC 3.56 M/uL (3.00-5.00); RDW-CV 14.5 % (11.9-14.6); WBC 11.3 K/uL (4.0-11.0)
[2016-08-29 07:18] LABS: PLATELET COUNT 151 K/uL (150-450)
[2016-08-29 07:26] LABS: ALBUMIN 2.5 gm/dL (3.5-5.0); ALK PHOS 54 IU/L (33-138); ALT 14 IU/L (12-78); ANION GAP 15.8 (10.0-19.0); AST 17 IU/L (10-40); BLOOD UREA NITROGEN 18 mg/dL (6-24); CALCIUM 8.2 mg/dL (8.5-10.5); CHLORIDE 111 mMol/L (96-110); CO2 20 mMol/L (22-32); CREATININE 0.6 mg/dL (0.5-1.1); POTASSIUM 3.8 mMol/L (3.7-5.1); SODIUM 143 mMol/L (135-145); TOTAL PROTEIN 5.7 g/dL (6.0-8.4)
[2016-08-29 07:27] LABS: TOTAL BILIRUBIN 0.3 mg/dL (0.0-1.5)
[2016-08-29 07:28] LABS: ESTIMATED GFR (MDRD EQUATION) > 60
--- NOTE | 2016-08-29 13:24 | NUR ---
Introduced myself and role of care management to pt and her son Jhonathan. They live in [place] and he is her primary caregiver along with brother Les. Pt is at home and they have a hospital bed, fer lift, lift chair, electric scooter, w/c, walker, commode. [facility], bathing, etc. He states he sets up her meds and does the cooking and cleaning and whatever is needed. I discussed dc plans and the plan will be to return back home as prior. I did call [facility] and they are aware pt is in and to fax dc orders when discharged.
--- NOTE | 2016-08-29 17:14 | NUR ---
PATIENT IS ALERT AND ORIENTED BUT FORGETFUL, FLEXISEAL HAS BEEN REPLACED SEVERAL TIMES TODAY. MANY LOOSE STOOLS TODAY. WO NURSE WOULD LIKE US TO TRY AND KEEP IT IN TO HELP SAVE HER SKIN. PATIENT HAS ATE WELL TODAY.
[2016-08-30 05:04] LABS: BASOPHIL # 0.1 K/uL (0.0-0.2); BASOPHIL % 0.5 %; EOSINOPHIL # 0.2 K/uL (0.0-0.5); EOSINOPHIL % 1.9 %; HEMATOCRIT 28.5 % (30.0-46.0); HEMOGLOBIN 9.3 g/dL (10.0-15.0); IMMATURE GRANULOCYTE # 0.1 K/uL (0.0-0.3); IMMATURE GRANULOCYTE % 0.5 %; LYMPHOCYTE # 2.1 K/uL (0.8-4.0); LYMPHOCYTE % 20.9 %; MCH 28.8 pg (27.0-34.0); MCHC 32.6 gm/dL (32.0-36.5); MCV 88.2 fl (83.0-98.0); MONOCYTE # 1.1 K/uL (0.0-1.0); MONOCYTE % 10.8 %; MPV 10.8 fl (9.4-12.4); NEUTROPHIL # (ANC) 6.5 K/uL (1.8-7.8); NEUTROPHIL % 65.4 %; NRBC % 0 /100WBC (0-0.00); PLATELET COUNT 135 K/uL (150-450); RBC 3.23 M/uL (3.00-5.00); RDW-CV 14.5 % (11.9-14.6); WBC 9.9 K/uL (4.0-11.0)
[2016-08-30 05:18] LABS: ALBUMIN 2.3 gm/dL (3.5-5.0); ANION GAP 12.4 (10.0-19.0); BLOOD UREA NITROGEN 14 mg/dL (6-24); CALCIUM 7.9 mg/dL (8.5-10.5); CHLORIDE 111 mMol/L (96-110); CO2 21 mMol/L (22-32); CREATININE 0.5 mg/dL (0.5-1.1); ESTIMATED GFR (MDRD EQUATION) > 60; POTASSIUM 3.4 mMol/L (3.7-5.1); SODIUM 141 mMol/L (135-145)
[2016-08-30 05:20] LABS: PHOSPHORUS 1.7 mg/dL (2.5-4.9)
--- NOTE | 2016-08-30 05:24 | NUR ---
Significant Event: DENIES PAIN ALL NIGHT EXCEPT WHEN R) LEG IS MOVED. AT START OF SHIFT, FLEXISEAL WAS FOUND PUSHED COMPLETELY OUT. 2 ATTEMPTS AT REINSERTION WERE UNSUCCESSFUL. SHE WAS FOUND TO HAVE SOFT MUSHY STOOL SURROUNDED BY LIQUID ON HER PAD. THIS LIQUID MAY HAVE BEEN URINE. SHE DID HAVE ANOTHER SOFT MUSHY STOOL THIS SHIFT. INCONT BOTH TIMES WELL INCONT OF URINE. HER MAX TEMP WAS 100.5 AXI AT 2320. REMAINS ON ROOM AIR. SLIGHTLY FORGETFUL AT TIMES. Follow up:
--- NOTE | 2016-08-30 19:19 | NUR ---
PATIENT REPO Q 2 HRS. ONLY SCANT INC STOOL THIS SHIFT. VSS, RA. SON AT BEDSIDE PART OF SHIFT. PT/OT ORDERED.
--- NOTE | 2016-08-31 02:52 | NUR ---
Significant Event:Pt alert however disoriented to times and place. pt sleepy this evening. does awake easily to verbal stimuli. pt reposistioned q2h and prn. incont of urine. pt vss during shift. takes medication whole with no complications noted.melissa wrap to right foot clean dry intact. denies pain when asked however had scheduled ultram at hs. uses call light approp. is msu status patient. laura area slightly red, laura care provided and barrier applied. remains on room air. lung sounds clear/diminished. Follow up:
--- NOTE | 2016-08-31 17:13 | NUR ---
PATIENT HAS GOTTEN UP IN RECLINER TODAY AND HAS DONE WELL. SHE IS AWAKE AND ALERT. DENIES PAIN.
--- NOTE | 2016-09-01 03:52 | NUR ---
Significant Event:Pt alert however confused at times. pleasant with stafff. uses call light approp. pt vss during shift. lung sounds clear/diminshed. bowel sounds present x4 quadrants. 2 large loose incontient stools. pt incontient of urine also. afebrile. full lift for transfers. turn q2h and prn. buttocks red, barrier applied. takes pills whole with no complications noted. Follow up:
[2016-09-01 06:05] LABS: BASOPHIL % 0.6 %; EOSINOPHIL # 0.3 K/uL (0.0-0.5); EOSINOPHIL % 5.2 %; HEMATOCRIT 28.9 % (30.0-46.0); HEMOGLOBIN 9.4 g/dL (10.0-15.0); IMMATURE GRANULOCYTE # 0.1 K/uL (0.0-0.3); IMMATURE GRANULOCYTE % 1.9 %; LYMPHOCYTE # 1.7 K/uL (0.8-4.0); LYMPHOCYTE % 27.8 %; MCH 28.5 pg (27.0-34.0); MCHC 32.5 gm/dL (32.0-36.5); MCV 87.6 fl (83.0-98.0); MONOCYTE # 0.6 K/uL (0.0-1.0); MONOCYTE % 9.5 %; MPV 9.5 fl (9.4-12.4); NEUTROPHIL # (ANC) 3.4 K/uL (1.8-7.8); NRBC % 0 /100WBC (0-0.00); PLATELET COUNT 147 K/uL (150-450); RDW-CV 14.5 % (11.9-14.6); WBC 6.2 K/uL (4.0-11.0)
[2016-09-01 06:21] LABS: ALBUMIN 2.1 gm/dL (3.5-5.0); ALK PHOS 44 IU/L (33-138); ALT 16 IU/L (12-78); ANION GAP 11.9 (10.0-19.0); AST 20 IU/L (10-40); BLOOD UREA NITROGEN 14 mg/dL (6-24); CHLORIDE 109 mMol/L (96-110); CO2 23 mMol/L (22-32); CREATININE 0.5 mg/dL (0.5-1.1); ESTIMATED GFR (MDRD EQUATION) > 60; POTASSIUM 3.9 mMol/L (3.7-5.1); SODIUM 140 mMol/L (135-145); TOTAL BILIRUBIN 0.3 mg/dL (0.0-1.5); TOTAL PROTEIN 5.2 g/dL (6.0-8.4)
[2016-09-01 12:34] LABS: PHOSPHORUS 2.5 mg/dL (2.5-4.9)
[2016-09-01 12:35] LABS: MAGNESIUM 1.7 mg/dL (1.8-2.6)
--- NOTE | 2016-09-01 13:19 | NUR ---
I did call [facility] and faxed discharge orders. I explained the plan is for pt to return back home today. WIll assist as needed.
[2016-09-01] MEDS ORDERED: VANCOCIN HCL250 MG PO (15:01)
[2016-09-01] MEDS ORDERED: MAG-OX-400(241400 MG PO (15:03)
== END 2016-09-01 15:30 | disposition home health service (06) | DRG 371 ==
LOC: GMED 13:07 → GPCU 18:02
PROVIDERS: Family Medicine; Hospitalist; Physician Assistant Medical; ADMIT Internal Medicine
DX: A04.7 Enterocolitis due to Clostridium difficile (principal); G93.40 Encephalopathy, unspecified; N17.9 Acute kidney failure, unspecified; I96 Gangrene, not elsewhere classified; E44.0 Moderate protein-calorie malnutrition; E86.0 Dehydration; E87.6 Hypokalemia; I10 Essential (primary) hypertension; G14 Postpolio syndrome
CPT/HCPCS: J1650; J3370; J7030; J7120

== ENCOUNTER 2016-10-28 16:35 | Inpatient (IN) | payer MEDICARE ==
[~2016-10-28] VITALS: Ht 165.1 cm; Wt 73.1 kg
--- NOTE | ~2016-10-28 | ER ---
PATIENT'S NAME: ALLYN JARRELL [facility] AGE: 81 Y [address] ROOM: [place] [address] LOCATION: GPCU ADMIT DATE: 10/28/2016 ER/Outpatient Report DISCHARGE DATE: FAMILY PHYSICIAN: Low Jennings MD ATTENDING PHYSICIAN: YANNI VENEGAS Time of Arrival: 1639 hours. Time of Evaluation: 1639 hours. CHIEF COMPLAINT: Slurred speech, fatigue. HISTORY OF PRESENT ILLNESS: Son reports that the patient saw Dr. Jennings last Thursday10/22/2016. Her calcium was high at that time. She was on a calcium supplement and vitamin D. Dr. Jennings had them stop that, and then she was to follow up this week. Son said yesterday 10/27/2016, she began having slurring of her speech. She seems more fatigued. Her son is able to arouse her, but she is very groggy and has been drinking a lot more water than she ever has with increased thirst. She denies having any pain anywhere. He states she has not been nauseated, has not vomited, has not complained of any pain. ALLERGIES: PENICILLIN. CURRENT MEDICATIONS: On her chart and reviewed by me. PAST MEDICAL HISTORY: She currently has C. diff, is being treated with vancomycin; dementia; gout; she is a polio survivor. 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 SOCIAL HISTORY: She lives at home with her son, who takes care of her. She denies use of tobacco, drugs, or alcohol. REVIEW OF SYSTEMS: All negative other than those mentioned in the HPI. PHYSICAL EXAMINATION: VITAL SIGNS: She weighs 66.3 kg, blood pressure is 147/78, pulse of 110, respirations 20, temperature of 98.1, O2 saturation is 92% on room air. PATIENT'S NAME: ALLYN JARRELL [facility] AGE: 81 Y [address] ROOM: [place] [address] LOCATION: GPCU ADMIT DATE: 10/28/2016 ER/Outpatient Report DISCHARGE DATE: FAMILY PHYSICIAN: Low Jennings MD ATTENDING PHYSICIAN: YANNI VENEGAS GENERAL: She arouses to verbal stimuli. She is awake and alert. When questioned, she is able to state her first name but not her last name. She knows she was born in [birth year] but not able to state the date or year. When asked when her symptoms started, she states at age 14. Her son reports she did develop polio at the age of 14. HEENT: Pupils are equal and reactive to light. Extraocular movement is intact. LUNGS: Lung sounds are clear throughout. Decreased in the bases. HEART: Regular, tachycardic rate. ABDOMEN: Soft, nondistended. Bowel sounds are present. EXTREMITIES: She is wheelchair bound and needed assistance to get on to the cart. She has a Coban dressing to her right upper ankle. LABORATORY DATA AND X-RAYS: Lab work was drawn. I did do CT scan of her head right away, and it was negative per the radiologist. CBC shows a white count of 13.3, hemoglobin is 12.8 with hematocrit of 38. PTT is 29, pro-time is 10.3 with INR of 0.98. Renal study shows sodium of 138, potassium 3.7, chloride of 99. Lab did call us to let us know that her calcium is 14.6, her BUN is 46, with a creatinine of 3.2. Lactate was 1.4 and procalcitonin was 0.12. Cath UA was obtained, did show 100 leukocytes, 5-10 whites, and rare bacteria. Did do a random Vancomycin level on her, it was less than 0.8. Her troponin was negative. EKG showed a sinus tach. EMERGENCY DEPARTMENT COURSE: Saline lock was initiated. Dr. Bowman was consulted regarding the patient. Dr. Venegas the hospitalist, was consulted for admission. IMPRESSION: 1. Hypercalcemia. 2. Acute kidney injury. PLAN: The patient will be admitted inpatient for care of the hospitalist. Her and her son are aware of the plan. THIERRY TRIPLETT APRN FOR MD GARRET GUERRA/louie /[id number] d: 10/29/16 0035 t: 11/06/16 1815, OUTPATIENT REPORT
--- NOTE | ~2016-10-28 | DS ---
PATIENT'S NAME: ALLYN JARRELL [facility] AGE: 81 Y [address] ROOM: [id number] [place], [place] [address] LOCATION: GPCU ADMIT DATE: 10/28/2016 Discharge Summary DISCHARGE DATE: 11/04/2016 FAMILY PHYSICIAN: Low Jennings MD ATTENDING PHYSICIAN: Cj Venegas FINAL DIAGNOSES: 1. Hypercalcemia. 2. Acute encephalopathy, secondary to hypercalcemia. 3. Acute kidney insufficiency. 4. Essential hypertension. 5. C. diff colitis. 6. Dehydration. 7. Hypokalemia. HISTORY OF PRESENT ILLNESS: For details of admission, please see the H and P dictated by Dr. Tru Venegas, but in short, the patient presented with acute renal failure, hypercalcemia, and acute encephalopathy. LABORATORY DATA: On admission, sodium was 138, got as high as 146 on the , discharge 142; potassium on admission was 3.7, got as low as 3.1 on the , 3.1 on October 31, most prior to discharge 3.8, chloride on admission was 99, discharge 112, CO2 on admission was 29, discharge 23, BUN on admission was 46, discharge 26, creatinine on admission was 3.2, most prior to discharge 1.5, phosphorus on admission was 5. Cardiac enzymes on admission were negative. Parathyroid hormone intact was 25.1. White blood cell count on admission was 13.3 with a hemoglobin of 12.8, hematocrit 38, platelet count 321, most prior to discharge, white blood cell count 7.4, hemoglobin most prior to discharge was 9.2, platelet count most prior to discharge was 205. Calcium level on admission was 14.6, did gradually come down, most prior to discharge was 8.7, magnesium on admission was 2.6, most prior to discharge 1.8. Procalcitonin on admission was 0.12. Serum protein electrophoresis showed hypoalbuminemia, vitamin D2 25 was less than 4, vitamin D25 D3 was 64.9, vitamin D125 was less than 5. Parathyroid related peptide was 1.4. MICROBIOLOGY DATA: Negative. RADIOLOGY DATA: Chest x-ray on admission did not show any acute changes. She did have cardiac enlargement. CT scan of the brain on admission did not show any acute findings, she had age-related issues. A skeletal survey was negative for a lytic lesion. 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 She had a large hiatal hernia. Small left pleural fluid collection. Abdomen, there were no liver lesions, normal appearance of the spleen, no adrenal masses, no abnormalities seen within the bowel wall. PATIENT'S NAME: ALLYN JARRELL [facility] AGE: 81 Y [address] ROOM: [id number] [place] [id number] LOCATION: GPCU ADMIT DATE: 10/28/2016 Discharge Summary DISCHARGE DATE: 11/04/2016 FAMILY PHYSICIAN: Low Jennings MD ATTENDING PHYSICIAN: Cj Venegas [facility] COURSE: The patient was admitted to PCU and given aggressive IV hydration. She was placed on calcitonin. She was continued on vancomycin for C. diff infection. Serum protein and urine protein electrophoresis were obtained as well as parathyroid related peptide levels and vitamin D levels. Her home medications were resumed except for the ones, where I was concerned may be affecting her calcium levels. She continued to receive IV hydration. She did also receive IV Lasix. We did continue to watch her creatinine, it did take a little while before it did trend down. She did have significant confusion related to the calcium that improved as the calcium level came down. We did see significant improvement the 1st day and each day it did decline. The concern was that this was due to a cancerous lesion. A skeletal survey was done which was negative. We did want to make sure she did not have a multiple myeloma as she presented anemic and hypercalcemic. CT scan of the chest, abdomen, and pelvis were obtained to evaluate for potential cancer, all of which returned negative. She continued to improve. We had her work with PT/OT. Her potassium was monitored and replaced as necessary. We did continue to replace her IV fluids. Oncology did see her and recommended that if her parathyroid related peptide returned elevated that we should do a PET scan; otherwise, there was no further evaluation required. Her kidney function continued to improve, her blood pressure was stable, her calcium remained in the normal range. The parathyroid related peptide returned negative, it was felt that she was stable for discharge, and could be discharged to home. I did discuss this with Dr. Jennings, her primary care provider. DISCHARGE INSTRUCTIONS: She is to have Home Health to follow with her and they will draw a renal panel on October 11 and fax it to Dr. Jennings's office. She will see Dr. Jennings on November 17. She will have Home Health for PT and OT. The paperwork was completed. DISCHARGE MEDICATIONS: 1. Tramadol 50-100 mg twice daily as needed. 2. Allopurinol 150 mg daily. 3. Aspirin 81 mg daily. 4. Griseofulvin 250 mg twice daily. 5. Remeron 30 mg at bedtime. 6. Simvastatin 40 mg at bedtime. 7. Exelon patch 0.46 mg change every 24 hours. 8. Restasis eyedrops 1 drop both eyes twice daily. 9. Tylenol 650 mg 1300 mg every 8 hours. 10. Vancomycin 250 mg daily. 11. Artificial Tears 1 drop 3 times daily. It was stressed to the patient and her son that she should stop calcium, all vitamins, calcium supplements, and vitamin D. They did voice understanding. PATIENT'S NAME: ALLYN JARRELL [facility] AGE: 81 Y [address] ROOM: [place] [address] [facility] ADMIT DATE: 10/28/2016 Discharge Summary DISCHARGE DATE: 11/04/2016 FAMILY PHYSICIAN: Low Jennings MD ATTENDING PHYSICIAN: Cj Venegas HOWARD GANDHI MD LAW/modl /[id number] d: 11/05/16 0002 t: 11/05/16 1934, DISCHARGE SUMMARY
--- NOTE | ~2016-10-28 | HP ---
PATIENT'S NAME: ALLYN JARRELL [facility] AGE: 81 Y [address] ROOM: [place] [address] LOCATION: GPCU ADMIT DATE: 10/28/2016 History & Physical DISCHARGE DATE: FAMILY PHYSICIAN: Low Jennings MD ATTENDING PHYSICIAN: YANNI HAYDEN DATE OF SERVICE: CHIEF COMPLAINT: Altered mental status and increased thirst. HISTORY OF PRESENT ILLNESS: An 81-year-old lady who is a polio survivor, wheel-chair bound, recently had a right transmetatarsal amputation secondary to gangrene who lives with a son presented to the emergency department, brought by her son who complained that for past 2-3 days, she had been little confused and had been complaining of lot of thirst and had been having generalized weakness and slurred speech. CAT scan was done in the emergency department, which did not reveal any acute intracranial changes. On my encounter, she appears confused. She is not alert and oriented. She does not complain of any headache, any trouble with the eyes, any chest pain, any shortness of breath, any atrial fibrillation, any calf, any abdominal pain, any burning on urination, or any extremity swelling. She does state that she is not feeling that well today. REVIEW OF SYSTEMS: All other systems were reviewed and were negative except what is mentioned in the HPI. PAST MEDICAL HISTORY: Significant for essential hypertension, hyperuricemia, wheelchair dependency, polio survivor, right foot gangrene status post amputation, venous insufficient. ALLERGIES: NO KNOWN DRUG ALLERGIES. MEDICATIONS: Being reconciled right now. FAMILY HISTORY: Significant for diabetes in both mom and dad. Dad had of myocardial infarction. SOCIAL HISTORY: Never a smoker. No alcohol or drug use. Lives at home with son. PATIENT'S NAME: ALLYN JARRELL [facility] AGE: 81 Y [address] ROOM: [place] [address] LOCATION: GPCU ADMIT DATE: 10/28/2016 History & Physical DISCHARGE DATE: FAMILY PHYSICIAN: Low Jennings MD ATTENDING PHYSICIAN: YANNI HAYDEN PHYSICAL EXAMINATION: VITAL SIGNS: Blood pressure 137/70 with a heart rate 103, afebrile, respiratory rate of 20. GENERAL: No acute distress. Alert and oriented x0. Head: Atraumatic and normocephalic. Eyes: Nonicteric. No pallor. Oropharynx: Very dry mucous membranes. CARDIOVASCULAR: S1, S2. No murmurs, gallops, or rubs. LUNGS: Clear to auscultation bilaterally. ABDOMEN: Soft, nontender, nondistended. Bowel sounds are present. EXTREMITIES: No clubbing, cyanosis, or edema. Right foot is transmetatarsally amputated. PSYCH: Normal affect, mood, and speech. MUSCULOSKELETAL: No muscle tenderness or joint swelling noted. SKIN: Bruise on the right bazan noted. ENDOCRINE: No thyromegaly appreciated. No stigmata of [place] disease noted. LABORATORY FINDINGS: CAT scan was done in the emergency department today, which did not reveal any acute intracranial changes. Her CBC was impressive for white count of 13, hemoglobin of 12, and platelets of 321. BNP was very impressive for calcium of 14, phosphorus of 5, creatinine 3.2, BUN of 46, glucose of 160. ASSESSMENT: 1. Severe hypercalcemia. 2. Acute kidney injury secondary to dehydration and hypercalcemia. 3. Ongoing Clostridium difficile diarrhea. 4. Dehydration. 5. Hypertension. 6. Polio survivor. PLAN: We are going to admit this patient to inpatient. At this point, we are going to very aggressively volume resuscitate her with Ringer's lactate for about 2- 1/2 to 3 L tonight to maintain urine output about 100-150 mL an hour. We are going to get ionized calcium and repeat it. We are going to obtain PTH- related protein levels. We are also going to get 1, 25-dihydroxy vitamin as well as 25-hydroxy vitamin levels. SPEP and UPEP will be ordered. Calcitonin 4 units/kg q.12 hours for 4 doses. Chest x-ray will be ordered to look for any granulomatous disease or process. Heparin for DVT prophylaxis. We will continue her vancomycin orally for the ongoing C diff colitis treatment, strict I's and O's, C difficile precautions. We will obtain uric acid level as well as CPK levels. The patient is FULL CODE. PATIENT'S NAME: ALLYN JARRELL [facility] AGE: 81 Y [address] ROOM: [place] [address] [facility] AD[facility] DATE: 10/28/2016 History & Physical DISCHARGE DATE: FAMILY PHYSICIAN: Low Jennings MD ATTENDING PHYSICIAN: YANNI HAYDEN YANNI HAYDEN MD SCOTT/modl /[id number] D: 030 T: 843 HISTORY & PHYSICAL
--- NOTE | ~2016-10-28 | CON ---
PATIENT'S NAME: STACIA GUILLEN [facility] AGE: 81 Y [address] ROOM: [id number] [place], [place] [address] LOCATION: GPCU ADMIT DATE: 10/28/2016 Consultation DISCHARGE DATE: FAMILY PHYSICIAN: Low Jennings MD ATTENDING PHYSICIAN: YANNI HAYDEN REFERRING PHYSICIAN: Juan Oro MD CHIEF COMPLAINT: Asked to evaluate patient with hypercalcemia and a question of cancer contributing. HISTORY OF PRESENT ILLNESS: Stacia Guillen is an 81-year-old female, plus polio survivor who presented and admitted on 10/28/2016 for increased confusion at which point, laboratory revealed hypercalcemia with a calcium of 14.6, and acute renal insufficiency with a BUN and creatinine of 46 and 3.2 respectively. Because of these findings, the patient was admitted for treatment and evaluation of the hypercalcemia. Was hydrated with fluids and given procalcitonin with gradual improvement of the calcium level. Evaluation did include vitamin D levels which were normal including a 1,25 vitamin D. Serum protein electrophoresis was performed and normal. Skeletal survey was performed and normal. PTH was 25.1, which was normal. Thyroid function was normal. A PTHrP is currently pending. She did undergo a skeletal survey as mentioned above as well as a CT scan of the chest, abdomen, and pelvis with a question of malignancy contributing. A CT was performed on 10/31. It did demonstrate a small left pleural effusion with lung consolidation at the left infrahilar area along with a large hiatal hernia and diverticuli, but no obvious malignancy noted. Her calcium has improved to 9.1 with the above treatments and her renal function improved from creatinine of 3.2 to a creatinine of 1.9 today. Her previous history is significant for C. diff colitis currently on the third week of oral vancomycin for treatment of that with resolution of the diarrhea. She also had right metatarsal amputations due to gangrene performed in August of 2016 and healed quite well. REVIEW OF SYSTEMS: The patient denies any pain or discomfort or anything unusual. She is wheelchair bound which she has been since polio and requires assistance with transfers. She reports this has not changed in the weeks preceding her admission. She denies any new aches or pains. She denies any shortness of breath, cough, or phlegm and overall currently she is feeling back to her normal self and is hoping to go home in the near future. She did take calcium with vitamin D prior to admission and drank milk regularly a couple glasses per day. Of note, her calcium on September 01 was normal at 8. PAST MEDICAL HISTORY: Includes history of polio at age 14 years of age, wheelchair bound. She has PATIENT'S NAME: STACIA GUILLEN [facility] AGE: 81 Y [address] ROOM: [id number] [place] [id number] LOCATION: GPCU ADMIT DATE: 10/28/2016 Consultation DISCHARGE DATE: FAMILY PHYSICIAN: Low Jennings MD ATTENDING PHYSICIAN: YANNI HAYDEN had surgery of the C-spine as well as the left hip. She has had more recently right metatarsal amputation due to gangrene in August of 2016. Has hypertension and gout. Discussed with her, she is on Exelon suggesting Alzheimer disease. ALLERGIES: NO KNOWN MEDICAL ALLERGIES. SOCIAL HISTORY: The patient lives in [facility]. Lives with her son. She does not smoke and never has. Does not drink alcohol. FAMILY HISTORY: No cancers in the family. HOME MEDICATIONS: 1. Vancomycin 250 mg p.o. b.i.d. 2. Aspirin. 3. Allopurinol 0.5 tablet daily. 4. Lorazepam at night. 5. Simvastatin at night. 6. Exelon patch. 7. Restasis eyedrops. 8. Reportedly calcium and vitamin D was taken at home as well. PHYSICAL EXAMINATION: VITAL SIGNS: Blood pressure 145/66, respirations 18, pulse 90, and temperature 98.7 degrees. GENERAL: The patient appears quite comfortable, in no apparent distress, eating supper in her bed. HEENT: Pupils are equal, round, reactive to light. Extraocular muscles are intact. Oral mucosa is moist and pink without lesions. Dentures in place. NECK: Without adenopathy as is the axillary region. HEART: Regular rate and rhythm without murmurs, rubs, or gallops. LUNGS: Diminished but clear without wheezing or notable rhonchi. ABDOMEN: Hyperactive bowel sounds. Nontender, nondistended. No organomegaly noted. EXTREMITIES: Without cyanosis or clubbing. She does have slight edema of bilateral lower extremities and status post right metatarsal amputations which is well healed. LABORATORY: As noted in the HPI. Additionally, the CBC upon presentation was fairly unremarkable with a white blood cell count of 13.3, hemoglobin 12.8, and platelets of 321. Her hemoglobin did drop into the 9s during her hospital stay. A PTHrP is pending. Radiologic review included a skeletal survey PATIENT'S NAME: STACIA GUILLEN [facility] AGE: 81 Y [address] ROOM: [place] [address] LOCATION: GPCU ADMIT DATE: 10/28/2016 Consultation DISCHARGE DATE: FAMILY PHYSICIAN: Low Jennings MD ATTENDING PHYSICIAN: YANNI HAYDEN obtained on 10/[address] scan on 10/31 as mentioned in the HPI. IMPRESSION AND PLAN: Stacia Guillen is an 81-year-old female presenting on 10/28/16 with hypercalcemia and acute renal insufficiency with etiology unclear, at this point, improved with hydration and calcitonin. Workup thus far has been unremarkable including a serum protein electrophoresis, skeletal survey, vitamin D levels, thyroid function, and parathyroid hormones. PTH related protein is currently pending. A CT scan and skeletal survey were unremarkable. Considerations at this point would include malignancy contributing. In which case, parathyroid hormone related protein would be expected to be elevated. Once this returns positive, then consideration of a PET scan may be reasonable. She did have a left lower lobe consolidation with pleural effusion. This was small and no discrete masses were appreciated on imaging on the CT scan, but a small cancer may hide in that small area. She does not have risk factors to support that diagnosis as she has never smoked. If the PTH related protein is normal, I am at loss for additional contribution to the hypercalcemia. We will follow along and await the PTH related protein and provide further assistance if needed. MD MOOSE FREITAS/louie /[id number] d: 11/02/16 2316 t: 11/11/16 1251, CONSULTATION REPORT
[~2016-10-28 16:35] MED LIST changes: +MAG-OX-400(241400 MG PO; +VANCOCIN HCL250 MG PO
[2016-10-28 17:02] LABS: BASOPHIL # 0.1 K/uL (0.0-0.2); BASOPHIL % 0.9 %; EOSINOPHIL # 0.3 K/uL (0.0-0.5); EOSINOPHIL % 2.3 %; HEMOGLOBIN 12.8 g/dL (10.0-15.0); IMMATURE GRANULOCYTE % 0.2 %; LYMPHOCYTE # 3.2 K/uL (0.8-4.0); LYMPHOCYTE % 24.1 %; MONOCYTE % 7.3 %; MPV 10.4 fl (9.4-12.4); NEUTROPHIL # (ANC) 8.6 K/uL (1.8-7.8); NEUTROPHIL % 65.2 %; NRBC % 0 /100WBC (0-0.00); RDW-CV 14.3 % (11.9-14.6); WBC 13.3 K/uL (4.0-11.0)
[2016-10-28 17:05] LABS: MCH 29.3 pg (27.0-34.0); MCHC 33.7 gm/dL (32.0-36.5); PLATELET COUNT 321 K/uL (150-450); RBC 4.37 M/uL (3.00-5.00)
[2016-10-28 17:10] LABS: INR - (THERAPEUTIC) 0.98 (0.92-1.07); PROTIME 10.3 SECONDS (9.8-11.4); PTT 29 SECONDS (25-32)
[2016-10-28 17:15] LABS: ALBUMIN 3.6 gm/dL (3.5-5.0); ANION GAP 13.7 (10.0-19.0); CREATININE 3.2 mg/dL (0.5-1.1); POTASSIUM 3.7 mMol/L (3.7-5.1)
[2016-10-28 17:18] LABS: CALCIUM 14.6 mg/dL (8.5-10.5)
[2016-10-28 17:42] LABS: BILIRUBIN URINE NEGATIVE (NEGATIVE); BLOOD URINE 25 /UL (NEGATIVE); COLOR URINE YELLOW (YELLOW); GLUCOSE URINE NEGATIVE (NEGATIVE); KETONE URINE NEGATIVE (NEGATIVE); LEUKOCYTES URINE 100 /UL (NEGATIVE); NITRITE URINE NEGATIVE (NEGATIVE); PROTEIN URINE 30 mg/dL (NEGATIVE); TURBIDITY URINE CLEAR (CLEAR); UROBILINOGEN URINE NORMAL (NORMAL)
[2016-10-28 17:50] LABS: BACTERIA URINE RARE (NEGATIVE)
[2016-10-28] MEDS ORDERED: VANCOCIN ORAL250 MG PO (20:13)
[2016-10-29 05:07] LABS: ANION GAP 11.6 (10.0-19.0); CREATININE 2.8 mg/dL (0.5-1.1); POTASSIUM 3.6 mMol/L (3.7-5.1)
[2016-10-29 05:16] LABS: CALCIUM 12.6 mg/dL (8.5-10.5)
--- NOTE | 2016-10-29 06:43 | NUR ---
Patient was brought into [facility] ER by son who is primary manager operations and procurement. Patient has had slurred speech, aphasia, grogginess, and increased thirst for the last 24 hours. Patient was diagnosed with C-Diff in August and has been on Vancomycin since. Patient also had all toes of right foot amputated in July. Has a history of Polio and Dementia. Upon arrival to ER, patient's calcium was 14.6. Patient arrived to PCU at 1940 per cart. Son was with patient. Has PIV to left hand. Orders to start Lactated Ringers at 200ml/hr X 2.5L and to place lindsey catheter. No complaints of pain. Patient is alert to person and at times to place. Cannot tell RN date of or children's names. Patient's son is reliable historian. Patient is resting comfortably in bed and has no complaints of pain.
--- NOTE | 2016-10-29 06:55 | NUR ---
Significant Event: Patient oriented to person only. Sometimes to place. Cannot tell RN date of , current year, or children's names. Patient mumbles frequently. Vital signs stable. On RA-3L O2 per NC. Rudolph catheter patent with 1200ml pink uop. No complaints of pain. Left hand IV with Lactated Ringers at 100ml/hr. Turned Q2. Bilateral groins red, open, yeasty. Skin tear to right lower leg. BM x1 this shift. Patient calm and cooperative with all cares. [place] Q12. Vanco Q8. Follow up: Will continue to monitor per plan of care.
--- NOTE | 2016-10-29 12:38 | NUR ---
Introduced self and CM role to Stacia and her son, Jhonathan who was at bedside. Stacia was sleeping during most of my visit so I talked with Jhonathan for the most part. Jhonathan tells me that she lives at home and he takes care of her for the most part. He is hoping that she can return home when she is able to dismiss. [facility], but he thinks that PT/OT might be a good thing to have as well when she goes home. Let him know I could take care of that for him. Jhonathan says that they have a full lift in the house to use on her if she isn't able to move by herself. Shannan' PCP is . Jhonathan tells me that he takes care of getting her medications filled and makes sure that his mom takes them when she is supposed to. He has no concerns with her going back home with HHC support when the time comes. Left my name on the whiteboard incase they would have any other questions while she is here. Sticky note was left on the chart re:dismissal plans - return home with HHC/support of son, when that time comes. CM to continue to follow and assist. I did zan resume HHC on Shannan' dismissal paperwork and also left a F2F on the chart for MD to sign and fill out so we could make sure therapies were ordered for HHC.
--- NOTE | 2016-10-29 16:32 | NUR ---
Significant Event: Arouses to voice. Tylenol given for pain but patient was unable to localize pain. O2 at 2L/NC. NS at 250ml/hr x1L then TRA 125ml/hr. Lasix IV x1. Rudolph to DD. Repo q2h. Poor appetite. Clear ensures to be ordered with every meal as well as yogurt per son states she likes those items. Follow up:
[2016-10-29 18:38] LABS: ALBUMIN 2.8 gm/dL (3.5-5.0); ANION GAP 11.4 (10.0-19.0); CREATININE 2.7 mg/dL (0.5-1.1); MAGNESIUM 2.6 mg/dL (1.8-2.6); PHOSPHORUS 4.2 mg/dL (2.5-4.9); POTASSIUM 3.4 mMol/L (3.7-5.1)
[2016-10-30 03:28] LABS: HEMOGLOBIN 9.9 g/dL (10.0-15.0); MCH 29.3 pg (27.0-34.0); MCV 88.5 fl (83.0-98.0); MPV 9.9 fl (9.4-12.4); RBC 3.38 M/uL (3.00-5.00); RDW-CV 14.5 % (11.9-14.6); WBC 7.8 K/uL (4.0-11.0)
[2016-10-30 03:29] LABS: HEMATOCRIT 29.9 % (30.0-46.0); MCHC 33.1 gm/dL (32.0-36.5); PLATELET COUNT 229 K/uL (150-450)
[2016-10-30 03:44] LABS: ALBUMIN 2.8 gm/dL (3.5-5.0); ANION GAP 11.7 (10.0-19.0); CALCIUM 10.9 mg/dL (8.5-10.5); CREATININE 2.7 mg/dL (0.5-1.1); MAGNESIUM 2.5 mg/dL (1.8-2.6); POTASSIUM 3.7 mMol/L (3.7-5.1)
[2016-10-30 05:50] LABS: ABSOLUTE NEUTROPHIL CT (ANC) 4.6 K/uL (1.8-7.8); BANDED NEUTROPHIL # 0.2 K/uL (0.0-0.1); BANDED NEUTROPHILS % 2 %; LYMPHOCYTE # 1.5 K/uL (0.8-4.0); LYMPHOCYTE % 19 %; MONOCYTE # 0.9 K/uL (0.0-1.0); SEGMENTED NEUTROPHIL # 4.5 K/uL (1.8-7.8); SEGMENTED NEUTROPHIL % 57 %
--- NOTE | 2016-10-30 07:08 | NUR ---
Significant Event: SHOWS NO S/S OF PAIN. CONFUSED ALL NIGHT. CAN ONLY STATE NAME. SOMETIMES SHE IS NOT ABLE TO SPEAK IN SENTENCES, JUST MUMBLED WORDS. REMAINS ON 2L O2 ALL NIGHT. WAS MOUTH BREATHING FOR A SHORT TIME AND HER SATS WERE LOWER 80s ON 2L. O2 PLACED IN HER MOUTH AND HER SATS INCREASED. EDMONDS PATENT WITH 1900ML OF UO. 40 MEQ OF KCL IV GIVEN X1. MOD BM X1. MUSHY AND SOFT IN APPEARANCE. Follow up:
--- NOTE | 2016-10-30 16:29 | NUR ---
Significant Event: Alert, able to state in [place] et give name but nothing else. VSS, SBPs 110-150s, HRs 60-70s, on room air. Tylenol given at 1045 for non-specific c/o pain; relief noted. Rudolph patent with 900 ml of yellow urine out this shift. 24 hour urine started at 1535 today. To xray per bed for a skeletal survey. Reposition every 2 hours or per family request. Follow up: CT chest/abd/pelvis with oral contrast in AM; 24 hour stop time 1535 on 10/31
--- NOTE | 2016-10-31 02:39 | NUR ---
Significant Event: DISORIENTED TO TIME. KNOW[place] KNOW [place] AT [place] OR THE SITUATION. FORGETFUL. DROWSY MOST OF THE SHIFT. TURNED Q 2HRS SIDE TO SIDE. SWABBED MOUTH AND APPLIED LIP BALM. PUT ALEO TO BUTTOCKS, GROIN FOLDS, AND BREASTS. AFEBRILE. VSS ON RA. ULTRAM GIVEN X1. LAST DOSE WAS AT 1838. PATIENT WAS ABLE TO FIND RELEIF AND REST COMFORTABLY THROUGOUT THE NIGHT. NO C/O OF PAIN THE REST OF THE SHIFT. IV TO L) HAND HAS NS AT 50 MLS/H. 24 HOUR URINE CONTINUED. WILL BE DONE 10/31 @ 1535. EDMONDS PRESENT WITH 800 MLS OUT. NO BM THIS SHIFT. CT OF CHEST/ABD/PELVIS THIS AM. Follow up: CONTINUE WITH PLAN OF CARE.
[2016-10-31 05:10] LABS: ALBUMIN 2.6 gm/dL (3.5-5.0); ANION GAP 14.1 (10.0-19.0); CALCIUM 9.9 mg/dL (8.5-10.5); CREATININE 2.3 mg/dL (0.5-1.1); MAGNESIUM 2.2 mg/dL (1.8-2.6); PHOSPHORUS 3.2 mg/dL (2.5-4.9); POTASSIUM 3.1 mMol/L (3.7-5.1)
--- NOTE | 2016-10-31 11:51 | NUR ---
A - NUTRITION FOLLOW-UP ATTEMPTED TO VISIT PT BUT NO FAMILY MEMBER PRESENT, RN NOT AVAILABLE, PT ASLEEP. PT NOT ABLE TO SPEAK IN SENTENCES PER SHIFT REPORT. LABS: NA 146, K+ 3.1, BUN 31, CREA 2.3, ALB 2.6, PRE-ALB 17 MEDS: ON REMERON. DIET: REGULAR W/ ENSURE CLEAR AND YOGURT TID. INTAKE 13% X4 MEALS NOTED. EST NEEDS: [id number] KCAL, 66-86 GRAMS PROTEIN, FLUID NEEDS: 1ML/KCAL D - INADEQUATE ORAL INTAKE RELATED TO ALTERATION IN APPETITE SECONDARY TO ALTERED MENTAL STATUS EVIDENCED BY PO 13% X4 MEALS. I - 1) WILL CONTINUE W/ ENSURE CLEAR AND YOGURT TID. 2) MIGHT NEED ENTERAL NUTRITION IF APPETITE DOES NOT IMPROVED. M/E - GOAL: PT WILL BE ABLE TO TOLERATE >50% OF MEALS AND AT LEAST TWO ORAL SUPPLEMENTS PER DAY IN 3-5 DAYS.
--- NOTE | 2016-10-31 19:09 | NUR ---
Significant Event: Alert, oriented to place et name only; cooperative with cares. VSS, SBPs 130-150s, HRs 60-70s, on room air. No c/o pain. Rudolph patent et draining yellow urine, 1000 ml out. 24 hour urine sent to lab. Recieving 40 mEq of IV KCL along with oral. Dr. Oro consulted; hasn't seen patient yet. Reposition every 2 hours while in bed, PT/OT consult Follow up:
[2016-11-01 03:55] LABS: ALBUMIN 2.5 gm/dL (3.5-5.0); ANION GAP 12.3 (10.0-19.0); CALCIUM 9.3 mg/dL (8.5-10.5); CREATININE 2.1 mg/dL (0.5-1.1); PHOSPHORUS 2.2 mg/dL (2.5-4.9)
[2016-11-01 03:56] LABS: POTASSIUM 4.3 mMol/L (3.7-5.1)
--- NOTE | 2016-11-01 06:56 | NUR ---
Significant Event: DISORIENTED TO TIME. FORGETFUL. MORE AWAKE THE BEGINNING OF THE SHIFT. RESTED IN BED ALL OF SHIFT. TURNED Q 2 HRS SIDE TO SIDE. AFEBRILE. VSS ON RA. ULTRAM GIVEN X1. PATIENT WAS ABLE TO FIND RELIEF AND REST COMFORTABLY THROUGHOUT THE NIGHT. IV TO L) WRIST WITH NS @ 50 ML/H. EDMONDS WITH 1250 MLS OUT. NO BM THIS SHIFT. CONTINUE WITH CONTACT ISOLATION AND PO VANCO. Follow up: CONTINUE WITH PLAN OF CARE.
--- NOTE | 2016-11-01 18:54 | NUR ---
Significant Event: Alert, oriented to place et able to give full name et month of ; cooperative with cares. VSS, SBPs 110-150s, HRs 70-80s, on room air. No c/o pain. Rudolph patent et draining yellow urine, 1700 ml out this shift. PT/OT working with patient; up to chair, pivot assist of 2; lift used to put patient back to bed. Reposition every 2 hours while in bed. Remains in contact precautions. Follow up:
--- NOTE | 2016-11-02 04:52 | NUR ---
Significant Event: DISORIENTED TO TIME, VERY PLEASANT AND COOPERATIVE. TURNED Q2, SBP 120-130'S, SINUS HR 70-80'S, 02 UPPER 90'S ON RA. GETS PO VANCO Q6. UOP 1650 VIA EDMONDS. LR INFUSING AT 125ML/HR. CRACKLES NOTED IN BASES. HAS DENIED PAIN, NO PAIN MEDS GIVEN. HAS SLEPT ALL EVENING. Follow up:
[2016-11-02 07:38] LABS: BASOPHIL # 0.1 K/uL (0.0-0.2); BASOPHIL % 0.9 %; EOSINOPHIL # 0.8 K/uL (0.0-0.5); EOSINOPHIL % 8.5 %; HEMATOCRIT 30.4 % (30.0-46.0); HEMOGLOBIN 9.8 g/dL (10.0-15.0); IMMATURE GRANULOCYTE % 0.4 %; LYMPHOCYTE # 3.3 K/uL (0.8-4.0); LYMPHOCYTE % 35.8 %; MCH 28.4 pg (27.0-34.0); MCHC 32.2 gm/dL (32.0-36.5); MCV 88.1 fl (83.0-98.0); MONOCYTE # 0.6 K/uL (0.0-1.0); MONOCYTE % 6.5 %; NEUTROPHIL # (ANC) 4.4 K/uL (1.8-7.8); NEUTROPHIL % 47.9 %; NRBC % 0 /100WBC (0-0.00); PLATELET COUNT 197 K/uL (150-450); RBC 3.45 M/uL (3.00-5.00); RDW-CV 14.8 % (11.9-14.6); WBC 9.1 K/uL (4.0-11.0)
[2016-11-02 07:51] LABS: ANION GAP 11.6 (10.0-19.0); CALCIUM 9.1 mg/dL (8.5-10.5); CREATININE 1.9 mg/dL (0.5-1.1); POTASSIUM 3.6 mMol/L (3.7-5.1)
--- NOTE | 2016-11-02 16:48 | NUR ---
Significant Event: Alert, disoriented to place; cooperative with cares. VSS, SBPs 120-40s, HRs 60-90s, on room air. No c/o pain. Dr. Rush consulted; not seen patient as of this time. Up to chair with assist of 2; repositioned every 2 hours while in bed. Follow up:
[2016-11-03 05:43] LABS: BASOPHIL % 0.5 %; EOSINOPHIL # 0.7 K/uL (0.0-0.5); EOSINOPHIL % 8.9 %; HEMOGLOBIN 9.2 g/dL (10.0-15.0); IMMATURE GRANULOCYTE % 0.5 %; LYMPHOCYTE # 2.1 K/uL (0.8-4.0); LYMPHOCYTE % 27.7 %; MCH 28.7 pg (27.0-34.0); MCHC 32.9 gm/dL (32.0-36.5); MCV 87.2 fl (83.0-98.0); MONOCYTE # 0.4 K/uL (0.0-1.0); MONOCYTE % 5.4 %; MPV 9.5 fl (9.4-12.4); NEUTROPHIL # (ANC) 4.2 K/uL (1.8-7.8); NRBC % 0 /100WBC (0-0.00); PLATELET COUNT 205 K/uL (150-450); RBC 3.21 M/uL (3.00-5.00); RDW-CV 14.7 % (11.9-14.6); WBC 7.4 K/uL (4.0-11.0)
--- NOTE | 2016-11-03 05:46 | NUR ---
Significant Event: DISORIENTED TO TIME, VERY PLEASANT AND COOPERATIVE WITH CARES. ALL VSS, HIGHEST TEMP 99.2 FIRST ASSESSMENT, LAST TEMP WAS 98.0. SBP'S 130'S TO 150'S, HR 70-80'S. HAS RESTED WELL IN BED ALL EVENING TURNED Q2 HOURS. LR INFUSING AT 75 ML/HR. UOP VIA EDMONDS 1450 ML. PO VANCO Q6 HOURS, REMAINS IN CONTACT ISO. HAS DENIED PAIN, NO PAIN MEDS GIVEN. Follow up:
[2016-11-03 06:05] LABS: CALCIUM 8.7 mg/dL (8.5-10.5); CREATININE 1.8 mg/dL (0.5-1.1)
--- NOTE | 2016-11-03 10:52 | NUR ---
A - NUTRITION F/U. A/X X 2. GLU 99, BUN/CLINIC ASSISTANT 25/1.8. PT W/ 1+ BUE AND 1-3+ BLE EDEMA. DIET IS REGULAR W/ ENSURE CLEAR TID. INTAKE VARIES 0-75%. D - AT RISK W/ INADEQUATE ORAL INTAKE AT TIMES R/T DECREASED APPETITE AEB INTAKE RECORD. I - GOAL: 50% OR BETTER INTAKE BY DISMISSAL. M/E - WILL CONT TO MONITOR INTAKE AND F/U IN 2-4 DAYS.
--- NOTE | 2016-11-03 14:38 | NUR ---
Talked with who tells me that she thinks she will be able to send Stacia home tomorrow with [facility] to resume. F2F was filled out and left on Shannan' chart. I let her know that this was fine and I would make sure that [facility] was updated and also talk with son, Jhonathan, about transportation. I phoned over to [facility], talked with Savanna, , updated her to the above. She was fine with this plan. Let her know that we added PT/OT to her list of [facility] needs along side her already RN services that they provided. Savanna was fine with this. Let her know that I would fax her the F2F and dismissal orders tomorrow when they are complete. Savanna states that this is ok with her and tells me that they will plan on admitting her back to their services on Thursday. I updated son Jhonathan to this, he is also in agreement with the plan. He says that he would be comfortable transporting his mom to his house in his own car if would could just help her get in the car. I let him know that I would talk with about this as we have been using a full lift on her most time for transfers and see what she thinks and let her make that call from there. Tc Ring is fine with this plan. CM to continue to follow and assist. Plan home with [facility] on Thursday if medically stable to transport at that time.
--- NOTE | 2016-11-03 18:41 | NUR ---
Significant Event: ALERT, PLEASANT. FORGETFUL. UP WITH HEAVY 2 ASSIST, GB & WALKER. PIV TO LEFT WRIST SL'D. EDMONDS CATHETER DC'D @ 1710. VSS. DENIES PAIN. BM X1. PLAN TO DISCHARGE HOME TOMORROW. Follow up:
[2016-11-04 04:20] LABS: ALBUMIN 2.7 gm/dL (3.5-5.0); ANION GAP 10.8 (10.0-19.0); CALCIUM 8.7 mg/dL (8.5-10.5); CREATININE 1.5 mg/dL (0.5-1.1); MAGNESIUM 1.8 mg/dL (1.8-2.6); POTASSIUM 3.8 mMol/L (3.7-5.1)
[2016-11-04 04:35] LABS: PHOSPHORUS 1.4 mg/dL (2.5-4.9)
--- NOTE | 2016-11-04 06:58 | NUR ---
Significant Event: PT A&Ox2, disoriented to time and forgetfull at times. VSS. Lung sounds clear-diminished on RA. PT remains on isolation precautions for C.diff. Follow up: Plan is to discharge to home health today.
[2016-11-04] MEDS ORDERED: ARTIFICIAL TEAR15 M5 OPHTH (11:24)
--- NOTE | 2016-11-04 12:38 | NUR ---
Talked with about Stacia going home in a private auto vs via ambulance. She was going to talk with Shannan' son and then make a determination from there. After they talked, Shannan' son said that he would feel comforable taking her in a private auto. I phoned up to the floor, asked that Amy in tele fax over the completed F2F,dismissal orders/meds and dimissal instructions all over to [facility] when they were completed. She states that she will do this. Let Amy know that there was a fax cover letter on the chart already filled out for her to use to fax everything over to the [facility] agency. I phoned over to Savanna, , let her know that dismissal orders/meds/F2F were going to be coming her way soon and if she could follow up with her on Thursday that would be great. Savanna states they will follow up with her tomorrow. No other questions needs or concerns. CM to continue to follow and assist. Plan Home with [facility] PT/OT/RN services.
--- NOTE | 2016-11-04 13:42 | NUR ---
DISCHARGE: FORGETFUL BUT PLEASANT. VSS. UP WITH HEAVY 2 ASSIST. INCONTINENT OF BOWEL AND BLADDER. C/O RIGHT LEG PAIN THIS AM THAT WAS RELIEVED WITH REPOSITIONING. PIV TO LEFT WRIST DC'D. DISCHARGE INSTRUCTIONS AND F/U APPOINTMENT DISCUSSED WITH PATIENT AND SON, WHO IS HER PRIMARY SUPERVISOR [employer]ATION. WILL RESUME HOME HEALTH AT HOME. NO FURTHER QUESTIONS AT THIS TIME. TAKEN TO [facility] BY WHEELCHAIR BY STUDENT NURSES @ 1250.
== END 2016-11-04 12:50 | disposition home health service (06) | DRG 682 ==
LOC: GMED 16:35 → GPCU 18:44
PROVIDERS: Emergency Medicine; Internal Medicine; ADMIT Internal Medicine
DX: N17.9 Acute kidney failure, unspecified (principal); G93.41 Metabolic encephalopathy; A04.7 Enterocolitis due to Clostridium difficile; F03.90 Unspecified dementia, unspecified severity, without behavioral disturbance, psychotic disturbance, mood disturbance, and anxiety; E83.52 Hypercalcemia; A80.9 Acute poliomyelitis, unspecified; D72.829 Elevated white blood cell count, unspecified; E86.0 Dehydration; N18.3 Chronic kidney disease, stage 3 (moderate); I12.9 Hypertensive chronic kidney disease with stage 1 through stage 4 chronic kidney disease, or unspecified chronic kidney disease
CPT/HCPCS: J0630; J1644; J1940; J3480; J7030; J7050; J7120

== ENCOUNTER 2016-11-23 11:49 | Inpatient (IN) | payer MEDICARE ==
[~2016-11-23] VITALS: Ht 165.1 cm; Wt 75.1 kg
--- NOTE | ~2016-11-23 | CON ---
PATIENT'S NAME: ALLYN JARRELL [facility] AGE: 81 Y [address] ROOM: [address] [place], [place] [address] LOCATION: GPCU ADMIT DATE: 11/23/2016 Consultation DISCHARGE DATE: FAMILY PHYSICIAN: Low Jennings MD ATTENDING PHYSICIAN: RITA CARLTON REFERRING PHYSICIAN: IRA OSBORNE MD HISTORY OF PRESENT ILLNESS: This is a patient referred to Cardiology for new onset chest pain and elevated cardiac enzymes. The patient had been admitted for acute onset of diarrhea, thought to be related to C difficile. She has been in and out of the hospital over the last month for several episodes of C diff and possible bloody stools. She was admitted at this time on 11/23/2016 and found to have a hemoglobin of 7 and received blood. She tested positive for C diff at that time. She just finished a round of oral vancomycin 2 weeks' prior to this episode. However, diarrhea had cleared and then resumed, with lots of mucus. She was admitted and was recovering from this episode. Hemoglobin had returned to normal. She began having chest pain yesterday evening. Per her son, she has baseline dementia; however, is acutely different since last night. She became combative, yelling, screaming, and cursing. This is not her normal mentation. She is talking as if her son and daughter are children in the home and answers a question seamingly appropriate, but resumes talking in whatever story she was in. Son says that this is not her baseline at all and that she is acutely altered. He denies that she was complaining of any kind of chest pain or shortness of breath prior to hospitalization. When asked about chest pain, patient points to lower sternal area, just off to the right. She says it feels like tight pressure. She does report that the pain goes to arm and neck, but she is also repeating anything that is said. Unsure how accurate her description is. 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 FAMILY HISTORY: Diabetes in both parents. Her father of an SD. SOCIAL HISTORY: No smoking, alcohol, drug use. Lives at home with her son. REVIEW OF SYSTEMS: I am unable to complete secondary to patient's altered mental status, anything noted in HPI is per son. PHYSICAL EXAM: VITALS: Blood pressure 104/60, heart rate 90s to low 100. GENERAL: Awake and alert, but not oriented. HEENT: Dry mucous membranes. CARDIAC: Regular rate and rhythm without murmurs, gallops, or rubs. PULMONARY: Clear to auscultation. PATIENT'S NAME: ALLYN JARRELL [facility] AGE: 81 Y [address] ROOM: [id number] [place] [id number] LOCATION: GPCU ADMIT DATE: 11/23/2016 Consultation DISCHARGE DATE: FAMILY PHYSICIAN: Low Jennings MD ATTENDING PHYSICIAN: RITA CARLTON ABDOMEN: Soft, nontender. Positive bowel sounds. LABORATORY DATA: Significant labs positive for C diff. First set of cardiac enzymes, CPK of 151, CK-MB of 14.7, and troponin of 3.08. Second set pending at time of this dictation. ASSESSMENT AND PLAN: 81-year-old female with recent Clostridium difficile colitis, now complaining of new onset chest pain with elevated cardiac enzymes. CT Chest for PE protocol revealed parasternal hiatal hernia with bowel and gastric contents. This could be contributing to chest discomfort. Also noted was worsening pulmonary kilpatrick in comparison to previous images, with increased infiltrates and/or consolidations. 1) ACS: We will follow ACS protocol at this point. We will give one dose Lovenox at 1mg/kg for ACS treatment (patient has reported allergy to heparin). Will give aspirin 325 mg PO/Chewable now, metoprolol 12.5 mg BID, nitroglycerin drip to titrate for chest pain and discuss further workup with family, invasive versus medication management. Will get repeat Cardiac Enzymes and Pro=BNP this evening and again in the morning to trend. Low threshold for repeat EKG. Patient is on telemetry.2D echo to evaluate for wma and LVEF. 2) Hiatal Hernia: Will give a GI cocktail to see if this helps relieve some of the symptoms and discomfort. 3) AMS: will get head CT w/o contrast to evaluate for acute process. This could be secondary to hypoxia noted last night, worsening infection secondary to C. Diff, or undiagnosed pneumonia. Pulmonolgy consult placed and will await their input. BLU DEY MD RESIDENT FOR MD MARIA TERESA FOFANA/louie /[id number] d: 11/26/16 1637 t: 12/05/16 0903, CONSULTATION REPORT
--- NOTE | ~2016-11-23 | ECHO ---
Transthoracic Echocardiography Report (TTE) Demographics Patient Name ALLYN JARRELL Date of Study 11/26/2016 Patient Number [id number] Visit Number [id number] Date of 1935 Room Number G6314 Accession Number [id number] Gender Female Age 81 year(s) Referring [facility] [employer] [facility], Physician Loy KISERT Renard Sanchez MD Physician Interpreting Mela Sandhu Outbound Sales Advisor Physician Supervising Ordering Physician MD/ANTONIOP Nurse Stress Wedger Conclusions Contractility Score Summary At rest the following contractility abnormalities were noted: Hypokinesis of the Mid anterior segment; Akinesis of the Mid john-septal, the Mid inferior, the Apical inferior, the Apical septal, the Apical lateral, the Apical anterior and the Apical cap segments. Contractility of all other segments appeared normal. Summary Technically difficult exam. Severely reduced LV systolic function. Entire apex is akinetic and hypercontractile basal segments, findings suggestive of takotsubo's cardiomyopathy. The estimated left ventricular ejection fraction is 30-35%. Diastolic assessment reveals Grade II pseudonormal diastolic function .The left atrium is moderately dilated. Mild-moderate mitral regurgitation by color Doppler. Mild mitral annular calcification. There is mild pulmonary hypertension. The pulmonary pressure (RVSP) is 46 mmHg. Mild to moderate tricuspid regurgitation by color Doppler. Technically difficult exam. Procedure Type of Study TTE procedure:2D Echocardiogram. Procedure Date Date: 11/26/2016 Start: 11:15 AM Study Location: Inpatient Portable Technical Quality: Limited visualization due to crying patient. Indications:Chest pain. Appropriate Use Criteria: 9 Patient Status: STAT Rhythm: Atrial fibrillation HR: 101 bpm BP: 109/64 mmHg M-Mode/2D Measurements LV Diastolic Dimension: 5.01 cm LV Systolic Dimension: 3.4 cm LV Septum Diastolic: 0.92 cm LV Septum Systolic: 4.22 cm LV PW Diastolic: 0.85 cm AO Root Dimension: 2.7 cm Cardiac Output: 4 l/min LA Dimension: 4 cm Post Pericard Effusion: 0.5 cm LVOT: 2 cm IVC Inspiration: 0.88 cm LVOT VTI: 12.6 cm RV Base: 3.81 cm LV Stroke volume: 39.56 ml RV Length: 4.44 cm TAPSE: 2.21 cm TDI-S': 22 cm/s Doppler Measurements AV Peak Velocity: 1.29 m/s MV Peak E-Wave: 1.3 m/s AV Peak Gradient: 6.66 mmHg MV Peak A-Wave: 0.97 m/s AV Mean Gradient: 3 mmHg MV E/A Ratio: 1.33 LVOT Peak Velocity: 0.91 m/s MV P1/2t: 30 msec TR Gradient:47.61 mmHg PV Peak Velocity: 1.04 m/s Estimated RAP:3 mmHg PV Peak Gradient: 4.33 mmHg Estimated RVSP: 51 mmHg Estimated PASP: 50.61 mmHg E' Septal Velocity: 0.05 m/s A' Septal Velocity: 0.1 m/s E' Lateral Velocity: 0.1 m/s A' Lateral Velocity: 0.09 m/s Findings Left Ventricle The estimated left ventricular ejection fraction is 30-35%. the apex appears Akinetic. Diastolic assessment reveals Grade II pseudonormal diastolic function . Right Ventricle Normal right ventricle structure and function. Left Atrium The left atrium is moderately dilated. Right Atrium Normal right atrial size. IVC imaging is consistent with normal RA pressures. Mitral Valve Mild-moderate mitral regurgitation by color Doppler. Mild mitral annular calcification. Aortic Valve The aortic valve is mildly sclerotic. Tricuspid Valve There is mild pulmonary hypertension. The pulmonary pressure (RVSP) is 46 mmHg. Mild to moderate tricuspid regurgitation by color Doppler. Pulmonic Valve Mild pulmonic valve regurgitation by color Doppler. Pericardial Effusion Trivial pericardial effusion. Miscellaneous Visualized portions of the aortic root and ascending aorta appear normal in size. Pleural Effusion No evidence of pleural effusion. Signature dtt: BETO PALENCIA dtd: 11/26/16 [facility]5 Physician Self Edit
--- NOTE | ~2016-11-23 | HP ---
PATIENT'S NAME: ALLYN JARRELL [facility] AGE: 81 Y [address] ROOM: [place] [address] LOCATION: [facility] [place] ADMIT DATE: 11/23/2016 History & Physical DISCHARGE DATE: FAMILY PHYSICIAN: Low Jennigns MD ATTENDING PHYSICIAN: RITA CARLTON DATE OF SERVICE: CHIEF COMPLAINT: Acute diarrhea, anemia. HISTORY OF PRESENT ILLNESS: This is an 81-year-old female with a history of recent C. diff colitis, status post treatment with p.o. vancomycin, recent hospitalization at the end of last month for a workup of hypercalcemia without a definitive diagnosis for that as an explanation, who presents today with a 1-day history of acute diarrhea. The patient describes having multiple loose stools starting yesterday evening, that kept her up all night. The patient reports that diarrhea was initially watery in nature, but later changed into a dark maroon-colored diarrhea. The patient otherwise denies any abdominal pain. Does report some nausea, but no vomiting. Denies any sick contact. No recent antibiotic exposure, and no recent travel. Denies any intake of food that is outside normal for her. The patient otherwise denies any dizziness, lightheadedness, chest pain, or shortness of breath. Denies any dysuria or frequency of urination symptoms. Also denies any fever or chills as well. PAST MEDICAL HISTORY: Essential hypertension; history of polio; right foot gangrene, status post; venous insufficiency; and C. diff. FAMILY HISTORY: Significant for diabetes in both her mom and dad and her father of an MA. SOCIAL HISTORY: She denies any smoking, alcohol, or drug use. She lives at home with son. REVIEW OF SYSTEMS: All systems have been reviewed and were negative except as described in the HPI. PHYSICAL EXAMINATION: VITAL SIGNS: Temperature 101, blood pressure 120/91, respiratory rate 18, and saturating 93% on room air. GENERAL: The patient is awake, alert, oriented x3, in no acute distress. HEENT: She exhibits dry mucosal membranes. No conjunctival pallor or scleral PATIENT'S NAME: ALLYN JARRELL [facility] AGE: 81 Y [address] ROOM: [place] [address] LOCATION: [facility] [place] ADMIT DATE: 11/23/2016 History & Physical DISCHARGE DATE: FAMILY PHYSICIAN: Low Jennings MD ATTENDING PHYSICIAN: RITA CARLTON icterus noted. SKIN: Without rash or lesions. CHEST: Clear to auscultation bilaterally. HEART: S1, S2. Regular rate and rhythm. ABDOMEN: Soft, nontender, and nondistended with positive bowel sounds. MUSCULOSKELETAL: No joint tenderness or effusion noted. NEUROLOGIC: Bilateral lower extremity spasticity. The patient has a known history of polio. SIGNIFICANT LABS: Positive for C. diff. ASSESSMENT AND PLAN: 1. Clostridium difficile colitis, present on admission. This appears to be first recurrence for patient. Just completed treatment with p.o. vancomycin a few days ago. At this time, I will go ahead and treat with Dificid 200 mg p.o. b.i.d. and should continue a 10-day course with this. 2. Acute anemia, requiring transfusion. The patient is describing maroon- colored diarrhea. We will ask for GI team to evaluate the patient and work up of anemia. Hemoglobin today is 7.0, last month's hemoglobin was 9 at discharge. The patient is hemodynamically stable from this standpoint. The patient although is a Jehovah witness, agrees to receive blood transfusions, and I will give her a unit of blood right now. 3. Essential hypertension. We will hold blood pressure medications and volume resuscitate in the setting of acute diarrhea. 4. Deep venous thrombosis prophylaxis. We will use SCDs. MD SEBASTIAN LI/modl /[id number] D: 3 T: HISTORY & PHYSICAL
--- NOTE | ~2016-11-23 | CON ---
PATIENT'S NAME: ALLYN JARRELL [facility] AGE: 81 Y [address] ROOM: [place] [address] LOCATION: GPCU ADMIT DATE: 11/23/2016 Consultation DISCHARGE DATE: 12/03/2016 FAMILY PHYSICIAN: Low Jennings MD ATTENDING PHYSICIAN: Loy Mattson DATE OF CONSULTATION: 12/01/2016 REFERRING PHYSICIAN: Amie Zayas MD LOCATION: U, room 6314. REFERRING PROVIDER: Guillaume Onofre MD CHIEF COMPLAINT: Palliative care referral for tube feeding discussion and goals of care discussion. HISTORY OF PRESENT ILLNESS: The patient is an 81-year-old female who was admitted with severe diarrhea and had stools positive for C diff. She has a history of previous hospital admissions for C diff in August and then another admission in October with hypercalcemia and ongoing C diff. The patient lives at home with her son as her primary caregiver. He reports that up until recently, she had been able to stand and pivot from bed to chair to toilet. Most recently, they have purchased a full lift and have been transferring her this way. She also has a history of dementia, congestive heart failure, hypertension, and a history of polio. She has had a poor appetite and some weight loss. In July 2016, she weighed in at 77 kg, and most recently, she has weighed in at 66 kg during this hospitalization. At the current time, she has a Dobbhoff in place and is receiving tube feedings and tolerating them fairly well. She continues to have diarrhea, but it has slowed to just 1 to 2 stools a day. She is incontinent of bowel. She has a Rudolph catheter, but that had to be replaced due to urinary retention during this hospital stay. Given the patient's multiple comorbidities, poor appetite, and weight loss, Palliative Care has been consulted to assist with goals of care conversation to include tube feeding discussion. PREVIOUS OPERATIONS: 1. Right transmetatarsal amputation of the foot in July 2016. 2. Bilateral carpal tunnel. 3. Angioplasty. 4. Hysterectomy. 5. Right rotator cuff repair. PATIENT'S NAME: ALLYN JARRELL [facility] AGE: 81 Y [address] ROOM: [place] [id number] LOCATION: GPCU ADMIT DATE: 11/23/2016 Consultation DISCHARGE DATE: 12/03/2016 FAMILY PHYSICIAN: Low Jennings MD ATTENDING PHYSICIAN: Loy Mattson 6. Bilateral knee surgeries. 7. Bilateral foot surgeries with transplant of a muscle in the 50s. 8. Tonsillectomy. 9. ORIF of right hip. 10. Bilateral cataracts. PAST MEDICAL HISTORY: 1. Recurrent C diff. 2. Hypertension. 3. Distant history of polio. 4. Right foot gangrene, status post amputation. 5. Venous insufficiency. 6. Protein-calorie nutrition. 7. Dementia. 8. Debility. MEDICATIONS: 1. Tylenol as needed. 2. Allopurinol 150 mg daily. 3. Aspirin 81 mg daily. 4. Align 4 mg daily. 5. Restasis one drop both eyes daily. 6. Griseofulvin 250 mg twice daily. 7. Remeron 30 mg at bedtime. 8. Exelon 4.6 mg patch daily. 9. Zocor 40 mg daily. 10. Ultram 50 to 100 mg p.o. twice daily as needed. ALLERGIES: PENICILLIN AND HEPARIN. SOCIAL HISTORY: The patient is . Her of pancreatic cancer a number of years ago. She has 4 children; 2 daughters and 2 sons. She lives near [place], [place], with her son as her primary caregiver. No history of tobacco or alcohol use. FAMILY HISTORY: Her mother had cardiac disease and of colon cancer. Her father of a heart attack. She had 2 sisters who of lung cancer, and a sister of breast cancer. REVIEW OF SYSTEMS: GENERAL: The patient's son reports that she is primarily bedbound at home and is no longer able to stand and pivot, has been requiring a full lift. He PATIENT'S NAME: ALLYN JARRELL [facility] AGE: 81 Y [address] ROOM: [id number] [place], [place] [address] LOCATION: GPCU ADMIT DATE: 11/23/2016 Consultation DISCHARGE DATE: 12/03/2016 FAMILY PHYSICIAN: Low Jennings MD ATTENDING PHYSICIAN: Loy Mattson reports that her appetite is not the greatest, but at home, she does eat small snacks and meals throughout the day. He does note weight loss. No recent fever, chills, or night sweats. Denies fatigue. HEENT: Denies change in vision or hearing. No headaches. No sinus congestion. RESPIRATORY: Denies shortness of breath. CARDIOVASCULAR: Denies chest pain or palpitations. Does have some bilateral lower extremity edema from time to time. GASTROINTESTINAL: No nausea or vomiting. She has had ongoing diarrhea at home which the son reports he is able to manage until it gets to where it is almost hourly stooling. Then, it is difficult for him. No difficulties chewing or swallowing. GENITOURINARY: She is incontinent. Denies dysuria. Does currently have a Rudolph catheter, this was replaced due to urinary retention here at the hospital. MUSCULOSKELETAL: Denies any joint swelling or joint pain for me, but is lying on a K-pad. Requires a full lift for transfers. No recent falls. NEUROLOGICAL: No dizziness, syncope, or seizures. Denies neuropathies. INTEGUMENTARY: Denies having any open areas. PSYCHIATRIC: She has a history of dementia. She has had altered mental status while here at the hospital, but son reports that this is almost back to baseline. PHYSICAL EXAMINATION: VITAL SIGNS: Blood pressure 110/71, heart rate 77, temperature 97.5, respirations 12, and O2 saturation is 96% on room air. GENERAL: An alert, forgetful, but conversational, elderly, chronically ill- appearing female who is lying in the hospital bed. Does not appear to be in any acute distress. She is oriented to being in the hospital and to situation, but not to date. HEENT: Normocephalic, atraumatic. Pupils equal and reactive to light. Sclerae are nonicteric. Conjunctivae are pink. Tongue and mucous membranes are moist and pink. Dentition is adequate. She does have a Dobbhoff to her right naris. CARDIOVASCULAR: Heart tones regular in rate and rhythm. I am not able to note any murmur. RESPIRATORY: Respirations are regular and nonlabored. Lung sounds are clear and diminished throughout. GASTROINTESTINAL: Abdomen is soft and nontender. Bowel sounds are present. GENITOURINARY: Rudolph catheter is intact with adequate amounts of yellow urine. MUSCULOSKELETAL: Does have the right metatarsal amputation. Peripheral pulses are 1+ bilaterally. She does have trace bilateral lower extremity edema. NEUROLOGICAL: Grossly intact. PSYCHIATRIC: Displays appropriate mood and affect for the situation. IMPRESSION AND PLAN: 1. Dementia. 2. Poor appetite. She is currently on tube feedings per her Dobbhoff. Son PATIENT'S NAME: ALLYN JARRELL [facility] AGE: 81 Y [address] ROOM: [place] [address] LOCATION: GPCU ADMIT DATE: 11/23/2016 Consultation DISCHARGE DATE: 12/03/2016 FAMILY PHYSICIAN: Low Jennings MD ATTENDING PHYSICIAN: Loy Mattson reports that she does not eat large meals, but eats small snacks throughout the day. I do wonder if either discontinuing tube feedings or at least changing them to nocturnal feedings would help increase her appetite. Did discuss at length with the son the possibility of a PEG tube. She does have a quite large hiatal hernia. Discussed the risks and benefits of this. Also, discussed quality of life and how this would affect it versus more of a hand feeding-type approach. Discussed the fact that with her being at home with one-to-one caregiving with her son, that most likely careful hand feeding and small frequent meals is most likely the best situation for her. 3. Debility. She is receiving PT and OT. 4. Code status. The patient is a full code and does have power of county attorney paperwork on the chart. Discussed code status with the patient's son. He agrees that most likely do not resuscitate/do not intubate is more appropriate, but needs to talk to his siblings first. I introduced the role of palliative care for goals of care conversation and symptom management. Discussed the patient's chronic illnesses as well as disease trajectory of dementia, heart failure, and protein-calorie malnutrition, and that this will most likely result in continued and ongoing recurrent hospital admissions. Visited with the patient and her son about quality of life versus quantity of life. The patient tells me that she would prefer to be at home and stay at home. She does not like being in the hospital. Given this, did discuss just briefly home health versus hospice options. They report that they currently have [facility] coming out to the home to help them. Discussed the benefit of hospice over home health given her debilitated condition. Also discussed the possibility of completing a POLST form prior to hospital discharge. Answered the patient and family's questions to the best of my ability. They denied any needs or concerns at this time. We will follow up after the son gets a chance to visit with his siblings. Total visit was 60 minutes, greater than 50% of this time was spent providing education and counseling. Thank you for allowing me to assist this patient and family. HUEY TAYLOR NP FOR EDUARDO GRIMES MD DLS/modl /[id number] PATIENT'S NAME: ALLYN JARRELL [facility] AGE: 81 Y [address] ROOM: [place] [address] [facility] ADMIT DATE: 11/23/2016 Consultation DISCHARGE DATE: 12/03/2016 FAMILY PHYSICIAN: Low Jennings MD ATTENDING PHYSICIAN: Loy Mattson CC: Guillaume Onofre MD d: 12/03/161499 t: 12/05/16 1720, CONSULTATION REPORT
--- NOTE | ~2016-11-23 | ER ---
PATIENT'S NAME: [facility] AGE: 81 Y [address] ROOM: [place] [address] LOCATION: [facility] [place] ADMIT DATE: 11/23/2016 ER/Outpatient Report DISCHARGE DATE: FAMILY PHYSICIAN: Low Jennings MD ATTENDING PHYSICIAN: RITA MATTSON Time of Arrival: 1155 hours. Time of Evaluation: 1155 hours. CHIEF COMPLAINT: Diarrhea. HISTORY OF PRESENT ILLNESS: The patient is an 81-year-old female who presents to the emergency department today with a chief complaint of diarrhea. She is accompanied by her , who is a better historian. The patient is a very poor historian. He reports that last night she had multiple episodes of diarrhea similar to her previous C. difficile. The patient was on vancomycin orally, but stopped about 2 weeks ago. She does have some maroon-colored stools as well. Does have some nausea. No vomiting. No abdominal pain. Denies any fevers at home or chills. No urinary symptoms. No cough. No shortness of breath. PAST MEDICAL HISTORY: 1. Dementia. 2. C. difficile. 3. Hypertension. 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 5. Venous insufficiency. PAST SURGICAL HISTORY: Right foot gangrene status post amputation. SOCIAL HISTORY: The patient lives at home with her son who takes care of her. Denies any tobacco, alcohol, or illicit drug use. ALLERGIES: PENICILLIN. MEDICATIONS: Please see list. PRIMARY CARE DOCTOR: Low Jennings MD PATIENT'S NAME: [facility]YN [facility] AGE: 81 Y [address] ROOM: [place] [address] LOCATION: [facility] [place] ADMIT DATE: 11/23/2016 ER/Outpatient Report DISCHARGE DATE: FAMILY PHYSICIAN: Low Jennings MD ATTENDING PHYSICIAN: RITA MATTSON REVIEW OF SYSTEMS: All systems are reviewed by myself and are negative with the exception of those discussed in the HPI and past medical history. PHYSICAL EXAMINATION: VITAL SIGNS: Weight 66 kg. Blood pressure 128/91, pulse 111, respiratory rate 20, temperature 101.0, and oxygen saturation 93% on room air. GENERAL: The patient is an 81-year-old female, who appears stated age, in no acute distress at this time. HEENT: Head; normocephalic and atraumatic. Pupils are equal, round, and reactive to light. NECK: Supple. There is no nuchal rigidity. CARDIOVASCULAR: Tachycardic. No murmurs, rubs, or gallops. LUNGS: Clear to auscultation bilaterally. No wheezes, rales, or rhonchi. ABDOMEN: Soft, nontender, and nondistended. No rebound, rigidity, or guarding. MUSCULOSKELETAL: The patient moves all 4 extremities. SKIN: Warm and dry. LABORATORY DATA AND IMAGING STUDIES: Labs and X-rays: CBC is remarkable for hemoglobin of 7.0 which is down from 9.2 on 11/03, platelets are normal. WBC is normal. Lactate is normal. Procalcitonin is 0.10. Coags are normal. Urinalysis shows 25 leukocyte esterase, 15 protein, and 100 glucose. CMP is unremarkable except for a potassium of 2.1. LFTs are normal. Cardiac enzymes are normal. ProBNP is normal. Urinalysis shows 25 leukocyte esterase, 15 protein, 100 glucose, 5-10 wbc's and epithelials, and negative bacteria. IMPRESSION: 1. Clostridium difficile positive diarrhea. 2. Acute blood loss anemia, unclear etiology. 3. Dementia. 4. Initial visit. EMERGENCY DEPARTMENT COURSE: The patient was brought back to the examination room. Seen and evaluated by myself. IV was established. The patient was given a liter of normal saline IV. She is given 4 mg of Zofran IV. I have discussed the results with the patient and her family at the bedside. Recommended admission to the hospital for further evaluation, treatment, and management. The patient is agreeable. I have contacted Dr. Mattson. He does agree to accept the patient for further evaluation, treatment, and management. I have had a discussion with him as to antibiotic treatment for C. difficile. He would prefer to see the patient before starting the antibiotic. PATIENT'S NAME: [facility] AGE: 81 Y [address] ROOM: [place] [address] LOCATION: [facility] [place] ADMIT DATE: 11/23/2016 ER/Outpatient Report DISCHARGE DATE: FAMILY PHYSICIAN: Low Jennings MD ATTENDING PHYSICIAN: RITA MATTSON DISPOSITION: The patient is admitted under the care of Dr. Mattson and Hospitalist Service in stable condition. DO KELLY SCOTT/sammiel /[id number] d: 11/23/162015 t: 11/24/16 0748, OUTPATIENT REPORT
--- NOTE | ~2016-11-23 | CON ---
PATIENT'S NAME: ALLYN GUILLEN [facility] AGE: 81 Y [address] ROOM: [place] [address] LOCATION: [facility] ADMIT DATE: 11/23/2016 Consultation DISCHARGE DATE: FAMILY PHYSICIAN: Low Jennings MD ATTENDING PHYSICIAN: RITA CARLTON DATE OF CONSULTATION: 11/23/2016 REFERRING PHYSICIAN: IRA OSBORNE MD REASON FOR CONSULTATION: This is an 81-year-old lady who was seen in consultation for evaluation of recent onset of melena. She claims that day before hospitalization, which was on 11/23/2016, she had black color stools, felt weakness. HISTORY OF PRESENT ILLNESS: An 81-year-old lady, who is quite comfortable in bed. She, however, claims that she had bleeding stools on day before hospitalization, and she was brought here with hemoglobin of 7 g. She did not have any fall, dizziness, blackout, but felt generally weak. She denies any hematemesis, nausea, or vomiting. Denies any anorexia. PAST MEDICAL HISTORY: 1. Significant that she was hospitalized on 10/28/2016 with history of hypercalcemia and renal failure. Calcium level then was 14.6, and creatinine was 3.2. She had periods of confusion. Workup was done extensively, which included CT scan, also chest, abdomen, and skeletal survey. No cause for hypercalcemia was seen. She recovered after hydration and treatment. 2. She is a survivor of polio from childhood at the age 14 and is wheelchair bound. 3. She has had surgery on C-spine and left hip. 4. She had metatarsal amputation from gangrene in August 2016. 5. Hypertension. 6. Gout. 7. She is on Exelon for Alzheimer's disease. REVIEW OF SYSTEMS: A 10-point review of system was negative other than mentioned above. SOCIAL HISTORY: She denies smoking and drinking. FAMILY HISTORY: No cancer in the family. PATIENT'S NAME: ALLYN GUILLEN [facility] AGE: 81 Y [address] ROOM: [place] [address] LOCATION: [facility] ADMIT DATE: 11/23/2016 Consultation DISCHARGE DATE: FAMILY PHYSICIAN: Low Jennings MD ATTENDING PHYSICIAN: RITA CARLTON ALLERGIES: NO KNOWN DRUG ALLERGIES. PHYSICAL EXAMINATION: GENERAL: Reveals an elderly lady, who is not in acute discomfort. She is little slow in expression, however, did tell me that she had polio in her childhood. VITAL SIGNS: Blood pressure 94/44, weight 66 kg, blood pressure is fluctuating between 140/83, pulse is 92 per minute, respirations 16 per minute, temperature 99 degrees Fahrenheit. HEENT: Head: Normocephalic, atraumatic. NECK: Supple. No lymphadenopathy. CHEST: Clear to palpation, percussion, auscultation. CARDIAC: Both heart sounds normal. No S3 or murmur. ABDOMEN: Soft, is nontender. There is no hepatosplenomegaly. No ascites. GENITOURINARY: Bladder is not full. There is no hypogastric tenderness. NEUROLOGICAL: Cranial nerves intact. MUSCULOSKELETAL: She has polio weakness in the lower extremities. She does have slight edema of both lower extremities. She is status right metatarsal amputation. LABORATORY DATA: Shows that she has hemoglobin 7 g, RBC 2.3, platelets 250. PT is 11.1 and INR is 1.26. Potassium is 3.6, CO2 is 21, glucose is 118, calcium is 8.9, creatinine 0.9, albumin 3.1. ProBNP 718. Uric acid is 5.4. TSH is 2.6. PTH is 25. Serum albumin is 3.4. 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 Large hiatal hernia. Stomach positioned in the posterior lower thorax behind the heart. Extensive vascular calcifications and small left pleural effusion collection. Lung consolidation at the left infrahilar area, posterior left lung base, scarring right lung base. The heart size is within normal limits. No mediastinal, hilar adenopathy. Post surgery for the lower cervical spine. MEDICATIONS: 1. She has history of pseudomembranous colitis in the past and was on Fidaxomicin, which was started on 11/23/2016. 2. She was on aspirin and no other anticoagulants. In addition, she has been on:. 3. Atorvastatin. 4. Hydralazine. 5. Nitroglycerin. 6. Omege-3. PATIENT'S NAME: ALLYN GUILLEN [facility] AGE: 81 Y [address] ROOM: [place] [address] LOCATION: [facility] ADMIT DATE: 11/23/2016 Consultation DISCHARGE DATE: FAMILY PHYSICIAN: Low Jennings MD ATTENDING PHYSICIAN: RITA CARLTON 7. Simvastatin. 8. Other medications as per MAR. ASSESSMENT: Ms. Guillen has multiple problems as mentioned above. 1. She has a history of melena with anemia, hemoglobin of 7 g, which is of recent onset. 2. She has a history of polio and metatarsal amputation with edema of legs. 3. History of hypercalcemia with acute renal failure, which resolved, the cause of which was indeterminate. 4. At present, she is comfortable in bed and does not have any dizzy spells or blackout. 5. Her blood pressure is fluctuating. RECOMMENDATIONS: We will go ahead and schedule her for upper GI endoscopy to rule out upper GI source of bleeding, and she has a history of melena with hemoglobin of 7 g. We appreciate sharing care of this patient. MD JAMIL ALEXIS/louie /[id number] CC: Low Jennings MD d: 11/23/16 2204 t: 11/24/16 1908, CONSULTATION REPORT
--- NOTE | ~2016-11-23 | DS ---
PATIENT'S NAME: ALLYN JARRELL [facility] AGE: 81 Y [address] ROOM: [address] [place] [address] LOCATION: GPCU ADMIT DATE: 11/23/2016 Discharge Summary DISCHARGE DATE: 12/03/2016 FAMILY PHYSICIAN: Low Jennings MD ATTENDING PHYSICIAN: Loy Mattson PRINCIPAL DIAGNOSES: 1. Recurrent Clostridium difficile colitis. 2. Gastrointestinal bleed with acute blood loss anemia, status post 1 unit packed red blood cell transfusion. 3. Duodenal ulcers. 4. Non-STEMI versus takotsubo cardiomyopathy with an ejection fraction of 30% to 35%. 5. Sessile gastric polyp. 6. Essential hypertension. 7. Coronary artery disease. 8. Combined congestive heart failure. 9. Hypokalemia. 10. Hypomagnesemia. 11. Large hiatal hernia. 12. Protein-calorie malnutrition. 13. History of polio. HOSPITAL COURSE: Please reference any of the admitting data to the history and physical as dictated by Dr. Mattson. An 81-year-old female presenting with acute diarrhea and anemia, was found to have recurrence of her recent diagnosis of Clostridium difficile and acute anemia with a hemoglobin of 7.0, requiring a transfusion of one packed red blood cells. She was started on Dificid in light of the fact that she just completed an oral vancomycin course. She was given supportive cares. She did require electrolyte replacement. In light of her anemia status post transfusion, hemoglobin was increased to 11.5. Hemodynamically stable. GI consultation was obtained and she underwent an EGD on 11/24/2016 after informed consent was obtained. She had multiple duodenal ulcers, so she was placed on PPI therapy. She was recommended no aspirin or NSAIDs. She did have biopsies taken of her polypectomy that showed reactive glandular change with focal ulceration and associated acute on chronic inflammation. It was negative for celiac disease. The gastric mucosa showed no diagnostic altercations and was negative for Helicobacter. The squamous and gastric mucosa of the esophagus biopsy showed also chronic inflammation and edema. It appeared that it was consistent with reactive glandular change with associated acute on chronic inflammation. It was negative for any intestinal metaplasia. There was no increase in intraepithelial eosinophils. She was placed on twice PATIENT'S NAME: ALLYN JARRELL [facility] AGE: 81 Y [address] ROOM: [address] [place], [place] [address] LOCATION: GPCU ADMIT DATE: 11/23/2016 Discharge Summary DISCHARGE DATE: 12/03/2016 FAMILY PHYSICIAN: Low Jennings MD ATTENDING PHYSICIAN: Loy Mattson daily proton pump inhibitor therapy. She was monitored serially over the next few days as her stool volume did slow down somewhat. Her renal function showed requirements of electrolyte replacement, which was done without complication. She did have a moment of delirium, maintained by Haldol. On the morning of 11/26/2016, she had acute hypoxic event with complaints of chest pain and pressure. Full workup was concerning for non-STEMI, so she was transferred to the progressive care unit. She was given stat aspirin therapy and cardiac enzymes were positive for a troponin of greater than 3. She also had a proBNP at that time of 23,372. There appeared to be no infectious etiology. We did scan her. CT scan of the chest did not show any evidence of pulmonary embolism, however, definitely significant bilateral pleural fluid collections and dense lung consolidation. She was started on Lasix drips for the edema. She was started on ACS protocol with Lovenox because of her changes in EKG and elevated troponin. Stat echocardiogram showed an EF of 30% to 35% with grade 2 pseudonormal diastolic function. There was also noted a mild pulmonary hypertension. She was kept on protective GI prophylaxis during her requirements of anticoagulation. Cardiac enzymes did trend downward over 4 more sets. Hemodynamically stable on telemetry. Recommendations were to undergo a heart catheterization, however, family deferred to medical treatment only, so she was optimized on a baby aspirin, statin, loop diuretic, and GRISELDA inhibitor. She tolerated all these additional medications well, having no further complication. Also contributing factors to her encephalopathy and delirium, her urine did show positive for multi-organism urinary tract infection with E. coli, Klebsiella pneumoniae, and Proteus mirabilis; covered with Rocephin intravenously for 3 days. A Dobhoff was also placed for nutritional support. We had nutrition dietary management of the tube feeding recommendations. As she became more arousable, we had Speech follow her for her swallow and cognitive needs. She did start to eat some more on her own, however, probably not enough to meet her daily caloric needs. We had a long discussion with the family and they deferred any further PEG tube feedings, so a Palliative Care consultation was obtained and the family was agreeable to hospice care. She did finish her course of Dificid while hospitalized. She did have improvement in her stools with decreased volume and increased density of the stool. She was tolerating new cardiac medications well. She did have physical and occupational therapy for restorative purposes. She did remain on pneumatic compression devices for DVT prophylaxis given the contraindication for anticoagulation. Care Management was involved for social issues and health arrange, and discharge planning to hospice care at home. PATIENT'S NAME: ALLYN JARRELL [facility] AGE: 81 Y [address] ROOM: [place] [address] LOCATION: GPCU ADMIT DATE: 11/23/2016 Discharge Summary DISCHARGE DATE: 12/03/2016 FAMILY PHYSICIAN: oLw Jennings MD ATTENDING PHYSICIAN: Loy Mattson SIGNIFICANT LAB FINDINGS: Initial presenting hemoglobin of 7.0, after 1 unit of transfusion was 11.5, and never did see a decline after that. Most recently, being on 12/03/2016, a hemoglobin of 10.7 and hematocrit of 31.4. She did have significant change in her white count on 11/27/2016 associated with the urinary tract infection of 13,000, showing resolution after treatment. Chemistry panel: She did require electrolyte replacement of her potassium and magnesium during her stay, but most recently showed a stable chemistry panel on 12/03/2016 of a glucose of 102, a BUN of 20, a creatinine of 0.7, a sodium of 138, a potassium of 3.7, a chloride of 100, a CO2 of 30, a calcium of 8.7, an albumin of 2.3, a phosphorus of 3.1, and a magnesium of 2.3. A lipid panel on 11/27/2016, showed a total cholesterol of 125, a triglyceride of 70, HDL of 48, and LDL of 63. Positive urinalysis. On 11/26/2016, was negative for leukocytes, negative for nitrites, but did have positive blood and white blood cells in the microanalysis and moderate bacteria. A culture showed positive for E. coli, Klebsiella pneumoniae, and Proteus mirabilis. Cardiac enzymes were apparently positive of 3.080, trending to 3.050, 3.030, and 2.340 accordingly. CPK was normal. CK-MB was elevated from 14.7, before falling to 6.5. Her proBNP 23,372 on 11/26/2016. Lactate within normal limits. Procalcitonin within normal limits. Prealbumin of 10. CONSULTING PROVIDERS: 1. Dr. Zayas, Gastroenterology. 2. Dr. Betina MD resident for Dr. Phoebe Plaza. 3. Nikki Shipley APRN, palliative care nurse practitioner. PROCEDURES: 1. EGD on 11/24/2016, by Dr. Zayas. 2. Powerglide IV insertion, 11/26/2016. 3. The patient received a transfusion of one packed red blood cells on 11/23/2016. DISCHARGE MEDICATIONS: 1. Zyloprim 150 mg p.o. every day. 2. Aspirin low-dose enteric-coated 81 mg p.o. every day. 3. Align Probiotic 4 mg p.o. every day. 4. Exelon 4.6 mg transdermal patch every 24 hours. PATIENT'S NAME: ALLYN JARRELL [facility] AGE: 81 Y [address] ROOM: [place] [address] LOCATION: GPCU ADMIT DATE: 11/23/2016 Discharge Summary DISCHARGE DATE: 12/03/2016 FAMILY PHYSICIAN: Low Jennings MD ATTENDING PHYSICIAN: Loy Mattson 5. Lasix 20 mg p.o. every morning, new medication. 6. Lisinopril 2.5 mg p.o. every day, new medication. 7. Metoprolol 25 mg p.o. every day, new medication. 8. Remeron 30 mg p.o. every night at bedtime. 9. Simvastatin 40 mg p.o. every night at bedtime. 10. Ultram 50 to 100 mg p.o. twice daily as needed. 11. Griseofulvin 250 mg p.o. twice daily. 12. Tylenol Arthritis 650 to 1300 mg p.o. every 8 hours as needed. 13. Restasis eyedrops 1 drop to each eye twice daily. 14. Protonix 40 mg p.o. twice daily x6 weeks then. 15. Protonix 40 mg p.o. daily, new medication. DISCHARGE INSTRUCTIONS: The patient will be discharged to home under hospice care to be established with [facility] hospice. Her diet is to remain as regular and as tolerated. Her activity as tolerated with fall precautions. She should follow up with her primary care doctor, Dr. Jennings, in 1 to 2 weeks to check on her progress. Laboratory values to be determined by the PCP at the time of evaluation. Recommendations were made for PPI therapy for 6 weeks and then once daily thereafter in light of the fact that the patient had significant duodenal ulcers as evidenced by EGD. Because of her non-STEMI versus takotsubo cardiomyopathy, baby aspirin is warranted in the patient and she did have a stable hemoglobin without any complications. We do, however, recommend no further NSAID therapy. The above line of management was discussed with the patient and son at the bedside, who stated complete understanding of the plan. All questions were answered with statements of satisfaction. Total time in directing and coordination of care and discharge planning was greater than 30 minutes. Thank you for allowing us to participate in the care of this patient while at [facility]. INESSA COREAS APRN, APRN FOR MD RANDOLPH HICKS/louie PATIENT'S NAME: ALLYN JARRELL [facility] AGE: 81 Y [address] ROOM: [place] [address] LOCATION: [facility] ADMIT DATE: 11/23/2016 Discharge Summary DISCHARGE DATE: 12/03/2016 FAMILY PHYSICIAN: Low Jennings MD ATTENDING PHYSICIAN: Loy Mattson /[id number] CC: Low Jennings MD d: t: 12/03/16 2216, DISCHARGE SUMMARY
[~2016-11-23 11:49] MED LIST changes: +ARTIFICIAL TEAR15 M5 OPHTH; +VANCOCIN ORAL250 MG PO
[2016-11-23 12:40] LABS: BASOPHIL % 0.4 %; IMMATURE GRANULOCYTE % 0.3 %; LYMPHOCYTE # 1.2 K/uL (0.8-4.0); LYMPHOCYTE % 12.5 %; MCV 87.4 fl (83.0-98.0); MONOCYTE # 0.6 K/uL (0.0-1.0); MONOCYTE % 6.3 %; MPV 10.8 fl (9.4-12.4); NEUTROPHIL # (ANC) 7.8 K/uL (1.8-7.8); NEUTROPHIL % 80.5 %; NRBC % 0 /100WBC (0-0.00); PLATELET COUNT 215 K/uL (150-450); RDW-CV 14.6 % (11.9-14.6); WBC 9.7 K/uL (4.0-11.0)
[2016-11-23 12:44] LABS: HEMATOCRIT 20.9 % (30.0-46.0); MCH 29.3 pg (27.0-34.0); MCHC 33.5 gm/dL (32.0-36.5); RBC 2.39 M/uL (3.00-5.00)
[2016-11-23 12:51] LABS: INR - (THERAPEUTIC) 1.06 (0.92-1.07); PROTIME 11.1 SECONDS (9.8-11.4); PTT 27 SECONDS (25-32)
[2016-11-23 13:04] LABS: ALBUMIN 3.1 gm/dL (3.5-5.0); ALK PHOS 75 IU/L (33-138); ALT 21 IU/L (12-78); ANION GAP 14.6 (10.0-19.0); AST 23 IU/L (10-40); BLOOD UREA NITROGEN 21 mg/dL (6-24); CALCIUM 8.9 mg/dL (8.5-10.5); CHLORIDE 105 mMol/L (96-110); CO2 21 mMol/L (22-32); CPK 21 IU/L (21-215); CREATININE 0.9 mg/dL (0.5-1.1); POTASSIUM 3.6 mMol/L (3.7-5.1); SODIUM 137 mMol/L (135-145)
[2016-11-23 13:06] LABS: TOTAL BILIRUBIN 0.4 mg/dL (0.0-1.5)
[2016-11-23 13:30] LABS: BILIRUBIN URINE NEGATIVE (NEGATIVE); BLOOD URINE NEGATIVE /UL (NEGATIVE); COLOR URINE YELLOW (YELLOW); GLUCOSE URINE 100 mg/dL (NEGATIVE); KETONE URINE NEGATIVE (NEGATIVE); LEUKOCYTES URINE 25 /UL (NEGATIVE); NITRITE URINE NEGATIVE (NEGATIVE); PROTEIN URINE 15 mg/dL (NEGATIVE); TURBIDITY URINE 1+ (CLEAR); UROBILINOGEN URINE NORMAL (NORMAL)
[2016-11-23 13:51] LABS: BACTERIA URINE NEGATIVE (NEGATIVE); MUCUS URINE 1+ (NEGATIVE); RBC URINE RARE #/HPF (NEGATIVE)
[2016-11-23] MEDS ORDERED: ALIGN4 MG PO (16:50)
[2016-11-24 00:55] LABS: HEMOGLOBIN 11.5 g/dL (10.0-15.0)
[2016-11-24 00:56] LABS: HEMATOCRIT 34.4 % (30.0-46.0)
[2016-11-24 05:23] LABS: BASOPHIL # 0.1 K/uL (0.0-0.2); BASOPHIL % 0.9 %; EOSINOPHIL # 0.1 K/uL (0.0-0.5); EOSINOPHIL % 2.3 %; HEMOGLOBIN 11.2 g/dL (10.0-15.0); IMMATURE GRANULOCYTE % 0.2 %; LYMPHOCYTE # 1.4 K/uL (0.8-4.0); LYMPHOCYTE % 25.6 %; MCH 29.9 pg (27.0-34.0); MCHC 33.9 gm/dL (32.0-36.5); MONOCYTE # 0.4 K/uL (0.0-1.0); MONOCYTE % 7.2 %; MPV 10.2 fl (9.4-12.4); NEUTROPHIL # (ANC) 3.4 K/uL (1.8-7.8); NEUTROPHIL % 63.8 %; NRBC % 0 /100WBC (0-0.00); PLATELET COUNT 120 K/uL (150-450); RBC 3.75 M/uL (3.00-5.00); WBC 5.3 K/uL (4.0-11.0)
[2016-11-24 05:37] LABS: ALBUMIN 2.5 gm/dL (3.5-5.0); ANION GAP 12.5 (10.0-19.0); CALCIUM 8.4 mg/dL (8.5-10.5); CREATININE 0.7 mg/dL (0.5-1.1); MAGNESIUM 1.8 mg/dL (1.8-2.6); PHOSPHORUS 3.3 mg/dL (2.5-4.9); POTASSIUM 3.5 mMol/L (3.7-5.1)
[2016-11-25 05:03] LABS: BASOPHIL % 0.7 %; EOSINOPHIL # 0.3 K/uL (0.0-0.5); EOSINOPHIL % 5.7 %; HEMATOCRIT 32.8 % (30.0-46.0); IMMATURE GRANULOCYTE % 0.7 %; LYMPHOCYTE # 1.5 K/uL (0.8-4.0); LYMPHOCYTE % 27.2 %; MCH 29.2 pg (27.0-34.0); MCHC 33.5 gm/dL (32.0-36.5); MONOCYTE # 0.5 K/uL (0.0-1.0); MONOCYTE % 9.1 %; MPV 10.6 fl (9.4-12.4); NEUTROPHIL # (ANC) 3.2 K/uL (1.8-7.8); NEUTROPHIL % 56.6 %; NRBC % 0 /100WBC (0-0.00); PLATELET COUNT 110 K/uL (150-450); RBC 3.77 M/uL (3.00-5.00); RDW-CV 14.4 % (11.9-14.6); WBC 5.6 K/uL (4.0-11.0)
[2016-11-25 07:34] LABS: ANION GAP 12.2 (10.0-19.0); POTASSIUM 3.2 mMol/L (3.7-5.1)
[2016-11-25 07:35] LABS: ALBUMIN 2.5 gm/dL (3.5-5.0); CALCIUM 8.3 mg/dL (8.5-10.5); CREATININE 0.6 mg/dL (0.5-1.1); MAGNESIUM 1.7 mg/dL (1.8-2.6); PHOSPHORUS 2.1 mg/dL (2.5-4.9)
[2016-11-26 05:47] LABS: HEMATOCRIT 36.7 % (30.0-46.0); HEMOGLOBIN 12.5 g/dL (10.0-15.0); MCH 29.6 pg (27.0-34.0); MCHC 34.1 gm/dL (32.0-36.5); RBC 4.22 M/uL (3.00-5.00); RDW-CV 14.5 % (11.9-14.6); WBC 11.8 K/uL (4.0-11.0)
[2016-11-26 05:48] LABS: PLATELET COUNT 206 K/uL (150-450)
[2016-11-26 06:05] LABS: ALBUMIN 2.9 gm/dL (3.5-5.0); CALCIUM 8.8 mg/dL (8.5-10.5); CREATININE 0.6 mg/dL (0.5-1.1); MAGNESIUM 2.2 mg/dL (1.8-2.6); POTASSIUM 4.4 mMol/L (3.7-5.1)
[2016-11-26 06:12] LABS: ANION GAP 15.4 (10.0-19.0); PHOSPHORUS 1.9 mg/dL (2.5-4.9)
[2016-11-26 06:23] LABS: ABSOLUTE NEUTROPHIL CT (ANC) 8.4 K/uL (1.8-7.8); BANDED NEUTROPHIL # 0.6 K/uL (0.0-0.1); BANDED NEUTROPHILS % 5 %; LYMPHOCYTE # 2.5 K/uL (0.8-4.0); LYMPHOCYTE % 21 %; MONOCYTE # 0.9 K/uL (0.0-1.0); SEGMENTED NEUTROPHIL # 7.8 K/uL (1.8-7.8); SEGMENTED NEUTROPHIL % 66 %
[2016-11-26 09:47] LABS: BICARBONATE 17.5 mmol/L (18.0-23.0); PCO2 24 mmHg (35-45); PO2 67 mmHg (80-90)
[2016-11-26 10:24] LABS: BILIRUBIN URINE NEGATIVE (NEGATIVE); BLOOD URINE 25 /UL (NEGATIVE); COLOR URINE YELLOW (YELLOW); GLUCOSE URINE NEGATIVE (NEGATIVE); KETONE URINE NEGATIVE (NEGATIVE); LEUKOCYTES URINE NEGATIVE /UL (NEGATIVE); NITRITE URINE NEGATIVE (NEGATIVE); PROTEIN URINE NEGATIVE (NEGATIVE); TURBIDITY URINE 1+ (CLEAR); UROBILINOGEN URINE NORMAL (NORMAL)
[2016-11-26 10:31] LABS: BACTERIA URINE MODERATE (NEGATIVE); HYALINE CAST URINE 0-2 #/LPF (NEGATIVE); WBC URINE 0-2 #/HPF (NEGATIVE)
[2016-11-26 14:27] LABS: INR - (THERAPEUTIC) 1.08 (0.92-1.07); PROTIME 11.4 SECONDS (9.8-11.4)
[2016-11-27 04:20] LABS: ALBUMIN 2.6 gm/dL (3.5-5.0); ANION GAP 12.9 (10.0-19.0); CALCIUM 8.5 mg/dL (8.5-10.5); CREATININE 0.8 mg/dL (0.5-1.1); POTASSIUM 3.9 mMol/L (3.7-5.1); TOTAL BILIRUBIN 0.4 mg/dL (0.0-1.5)
[2016-11-27 04:22] LABS: BASOPHIL # 0.1 K/uL (0.0-0.2); BASOPHIL % 0.5 %; EOSINOPHIL % 0.1 %; HEMATOCRIT 35.4 % (30.0-46.0); IMMATURE GRANULOCYTE # 0.1 K/uL (0.0-0.3); IMMATURE GRANULOCYTE % 0.4 %; LYMPHOCYTE % 15.4 %; MCH 29.3 pg (27.0-34.0); MCHC 33.9 gm/dL (32.0-36.5); MCV 86.6 fl (83.0-98.0); MONOCYTE # 0.9 K/uL (0.0-1.0); MONOCYTE % 7.3 %; MPV 10.5 fl (9.4-12.4); NEUTROPHIL # (ANC) 9.9 K/uL (1.8-7.8); NEUTROPHIL % 76.3 %; NRBC % 0 /100WBC (0-0.00); PLATELET COUNT 222 K/uL (150-450); RBC 4.09 M/uL (3.00-5.00); RDW-CV 14.7 % (11.9-14.6)
[2016-11-28 04:52] LABS: BASOPHIL # 0.1 K/uL (0.0-0.2); BASOPHIL % 0.5 %; EOSINOPHIL # 0.2 K/uL (0.0-0.5); EOSINOPHIL % 1.7 %; HEMATOCRIT 37.1 % (30.0-46.0); HEMOGLOBIN 12.8 g/dL (10.0-15.0); IMMATURE GRANULOCYTE # 0.1 K/uL (0.0-0.3); IMMATURE GRANULOCYTE % 0.7 %; LYMPHOCYTE # 1.7 K/uL (0.8-4.0); LYMPHOCYTE % 14.8 %; MCH 29.6 pg (27.0-34.0); MCHC 34.5 gm/dL (32.0-36.5); MCV 85.7 fl (83.0-98.0); MONOCYTE # 0.9 K/uL (0.0-1.0); MONOCYTE % 7.7 %; MPV 10.4 fl (9.4-12.4); NEUTROPHIL # (ANC) 8.6 K/uL (1.8-7.8); NEUTROPHIL % 74.6 %; NRBC % 0 /100WBC (0-0.00); PLATELET COUNT 211 K/uL (150-450); RBC 4.33 M/uL (3.00-5.00); RDW-CV 14.6 % (11.9-14.6); WBC 11.5 K/uL (4.0-11.0)
[2016-11-28 05:08] LABS: ALBUMIN 2.6 gm/dL (3.5-5.0); ANION GAP 11.6 (10.0-19.0); CALCIUM 8.4 mg/dL (8.5-10.5); CREATININE 0.8 mg/dL (0.5-1.1); MAGNESIUM 2.2 mg/dL (1.8-2.6); PHOSPHORUS 2.6 mg/dL (2.5-4.9); POTASSIUM 3.6 mMol/L (3.7-5.1)
[2016-11-29 06:47] LABS: BASOPHIL # 0.1 K/uL (0.0-0.2); BASOPHIL % 0.7 %; EOSINOPHIL # 0.5 K/uL (0.0-0.5); EOSINOPHIL % 4.6 %; HEMATOCRIT 38.8 % (30.0-46.0); HEMOGLOBIN 13.1 g/dL (10.0-15.0); IMMATURE GRANULOCYTE # 0.1 K/uL (0.0-0.3); IMMATURE GRANULOCYTE % 1.1 %; LYMPHOCYTE # 3.2 K/uL (0.8-4.0); LYMPHOCYTE % 29.2 %; MCHC 33.8 gm/dL (32.0-36.5); MCV 85.8 fl (83.0-98.0); MONOCYTE # 0.9 K/uL (0.0-1.0); MPV 10.6 fl (9.4-12.4); NEUTROPHIL # (ANC) 6.2 K/uL (1.8-7.8); NEUTROPHIL % 56.4 %; NRBC % 0 /100WBC (0-0.00); PLATELET COUNT 203 K/uL (150-450); RBC 4.52 M/uL (3.00-5.00); RDW-CV 14.7 % (11.9-14.6); WBC 11.1 K/uL (4.0-11.0)
[2016-11-29 06:58] LABS: ALBUMIN 2.6 gm/dL (3.5-5.0); CALCIUM 8.8 mg/dL (8.5-10.5); CREATININE 0.8 mg/dL (0.5-1.1); MAGNESIUM 1.9 mg/dL (1.8-2.6); PHOSPHORUS 2.5 mg/dL (2.5-4.9)
[2016-11-30 05:27] LABS: BASOPHIL # 0.1 K/uL (0.0-0.2); BASOPHIL % 0.8 %; EOSINOPHIL # 0.5 K/uL (0.0-0.5); EOSINOPHIL % 5.4 %; HEMOGLOBIN 12.3 g/dL (10.0-15.0); IMMATURE GRANULOCYTE # 0.1 K/uL (0.0-0.3); IMMATURE GRANULOCYTE % 0.6 %; LYMPHOCYTE # 2.3 K/uL (0.8-4.0); LYMPHOCYTE % 24.3 %; MCH 29.1 pg (27.0-34.0); MCHC 33.2 gm/dL (32.0-36.5); MCV 87.5 fl (83.0-98.0); MONOCYTE % 10.4 %; MPV 10.5 fl (9.4-12.4); NEUTROPHIL # (ANC) 5.6 K/uL (1.8-7.8); NEUTROPHIL % 58.5 %; NRBC % 0 /100WBC (0-0.00); PLATELET COUNT 191 K/uL (150-450); RBC 4.23 M/uL (3.00-5.00); RDW-CV 14.5 % (11.9-14.6); WBC 9.5 K/uL (4.0-11.0)
[2016-11-30 05:49] LABS: ALBUMIN 2.5 gm/dL (3.5-5.0); CALCIUM 8.6 mg/dL (8.5-10.5); CREATININE 0.7 mg/dL (0.5-1.1); PHOSPHORUS 3.7 mg/dL (2.5-4.9)
[2016-12-01 09:53] LABS: BASOPHIL # 0.1 K/uL (0.0-0.2); BASOPHIL % 0.7 %; EOSINOPHIL # 0.4 K/uL (0.0-0.5); HEMATOCRIT 38.1 % (30.0-46.0); HEMOGLOBIN 12.6 g/dL (10.0-15.0); IMMATURE GRANULOCYTE # 0.1 K/uL (0.0-0.3); IMMATURE GRANULOCYTE % 0.7 %; LYMPHOCYTE # 1.9 K/uL (0.8-4.0); LYMPHOCYTE % 18.8 %; MCH 28.9 pg (27.0-34.0); MCHC 33.1 gm/dL (32.0-36.5); MCV 87.4 fl (83.0-98.0); MONOCYTE # 0.9 K/uL (0.0-1.0); MONOCYTE % 8.6 %; MPV 10.3 fl (9.4-12.4); NEUTROPHIL # (ANC) 6.7 K/uL (1.8-7.8); NEUTROPHIL % 67.2 %; NRBC % 0 /100WBC (0-0.00); PLATELET COUNT 205 K/uL (150-450); RBC 4.36 M/uL (3.00-5.00); RDW-CV 14.3 % (11.9-14.6)
[2016-12-01 10:07] LABS: ALBUMIN 2.5 gm/dL (3.5-5.0); ANION GAP 12.9 (10.0-19.0); CALCIUM 9.2 mg/dL (8.5-10.5); CREATININE 0.8 mg/dL (0.5-1.1); MAGNESIUM 2.2 mg/dL (1.8-2.6); PHOSPHORUS 3.4 mg/dL (2.5-4.9); POTASSIUM 3.9 mMol/L (3.7-5.1)
[2016-12-02 06:25] LABS: BASOPHIL # 0.1 K/uL (0.0-0.2); BASOPHIL % 0.6 %; EOSINOPHIL # 0.5 K/uL (0.0-0.5); EOSINOPHIL % 4.7 %; HEMATOCRIT 33.6 % (30.0-46.0); HEMOGLOBIN 11.3 g/dL (10.0-15.0); IMMATURE GRANULOCYTE # 0.1 K/uL (0.0-0.3); IMMATURE GRANULOCYTE % 0.6 %; LYMPHOCYTE # 2.3 K/uL (0.8-4.0); LYMPHOCYTE % 21.6 %; MCH 29.7 pg (27.0-34.0); MCHC 33.6 gm/dL (32.0-36.5); MCV 88.2 fl (83.0-98.0); MONOCYTE # 0.8 K/uL (0.0-1.0); MONOCYTE % 7.8 %; MPV 10.3 fl (9.4-12.4); NEUTROPHIL % 64.7 %; NRBC % 0 /100WBC (0-0.00); PLATELET COUNT 228 K/uL (150-450); RBC 3.81 M/uL (3.00-5.00); RDW-CV 14.4 % (11.9-14.6); WBC 10.8 K/uL (4.0-11.0)
[2016-12-02 06:34] LABS: ALBUMIN 2.3 gm/dL (3.5-5.0); ANION GAP 9.8 (10.0-19.0); CALCIUM 8.7 mg/dL (8.5-10.5); CREATININE 0.8 mg/dL (0.5-1.1); MAGNESIUM 2.4 mg/dL (1.8-2.6); POTASSIUM 3.8 mMol/L (3.7-5.1)
[2016-12-03 04:35] LABS: BASOPHIL # 0.1 K/uL (0.0-0.2); BASOPHIL % 0.6 %; EOSINOPHIL # 0.4 K/uL (0.0-0.5); EOSINOPHIL % 3.1 %; HEMATOCRIT 31.4 % (30.0-46.0); HEMOGLOBIN 10.7 g/dL (10.0-15.0); IMMATURE GRANULOCYTE # 0.1 K/uL (0.0-0.3); IMMATURE GRANULOCYTE % 0.6 %; LYMPHOCYTE % 17.1 %; MCH 30.3 pg (27.0-34.0); MCHC 34.1 gm/dL (32.0-36.5); MONOCYTE # 0.9 K/uL (0.0-1.0); MONOCYTE % 7.7 %; MPV 10.3 fl (9.4-12.4); NEUTROPHIL # (ANC) 8.2 K/uL (1.8-7.8); NEUTROPHIL % 70.9 %; NRBC % 0 /100WBC (0-0.00); PLATELET COUNT 200 K/uL (150-450); RBC 3.53 M/uL (3.00-5.00); RDW-CV 14.5 % (11.9-14.6); WBC 11.6 K/uL (4.0-11.0)
[2016-12-03 04:49] LABS: ALBUMIN 2.3 gm/dL (3.5-5.0); ANION GAP 11.7 (10.0-19.0); CALCIUM 8.7 mg/dL (8.5-10.5); CREATININE 0.7 mg/dL (0.5-1.1); MAGNESIUM 2.3 mg/dL (1.8-2.6); PHOSPHORUS 3.1 mg/dL (2.5-4.9); POTASSIUM 3.7 mMol/L (3.7-5.1)
[2016-12-03] MEDS ORDERED: LASIX20 MG PO (13:26)
[2016-12-03] MEDS ORDERED: PRINIVIL (ZESTRI5 MG PO (13:29)
[2016-12-03] MEDS ORDERED: TOPROL XL25 MG PO (13:31)
[2016-12-03] MEDS ORDERED: PROTONIX40 MG PO (13:44)
== END 2016-12-03 15:10 | disposition hospice, home (50) | DRG 371 ==
LOC: GMED 11:49 → GMSU 14:56 → GPCU 14:56
PROVIDERS: Emergency Medicine; Family Medicine; Internal Medicine; Internal Medicine Interventional Cardiology; ADMIT Internal Medicine
PROC: 30233N1 Transfusion of Nonautologous Red Blood Cells into Peripheral Vein, Percutaneous Approach (ICD-10-PCS; principal; 2016-11-23)
PROC: 0DB98ZX Excision of Duodenum, Via Natural or Artificial Opening Endoscopic, Diagnostic (ICD-10-PCS; 2016-11-24)
PROC: 0DB68ZX Excision of Stomach, Via Natural or Artificial Opening Endoscopic, Diagnostic (ICD-10-PCS; 2016-11-24)
PROC: 0DH63UZ Insertion of Feeding Device into Stomach, Percutaneous Approach (ICD-10-PCS; 2016-11-27)
DX: A04.7 Enterocolitis due to Clostridium difficile (principal); K29.81 Duodenitis with bleeding; I21.4 Non-ST elevation (NSTEMI) myocardial infarction; J96.01 Acute respiratory failure with hypoxia; I50.43 Acute on chronic combined systolic (congestive) and diastolic (congestive) heart failure; J90 Pleural effusion, not elsewhere classified; D62 Acute posthemorrhagic anemia; E83.42 Hypomagnesemia; K92.1 Melena; N39.0 Urinary tract infection, site not specified; K31.7 Polyp of stomach and duodenum; I11.0 Hypertensive heart disease with heart failure; E87.6 Hypokalemia; K44.9 Diaphragmatic hernia without obstruction or gangrene; Z51.5 Encounter for palliative care; Z99.3 Dependence on wheelchair; G30.9 Alzheimer's disease, unspecified; F02.80 Dementia in other diseases classified elsewhere, unspecified severity, without behavioral disturbance, psychotic disturbance, mood disturbance, and anxiety; Z79.82 Long term (current) use of aspirin; Z95.5 Presence of coronary angioplasty implant and graft; Z89.431 Acquired absence of right foot; Z88.0 Allergy status to penicillin; Z88.8 Allergy status to other drugs, medicaments and biological substances; I73.9 Peripheral vascular disease, unspecified
CPT/HCPCS: C1751; C9113; J0696; J1630; J1650; J1940; J2270; J2405; J3475; J3480; J7030; J7040; J7050; P9016; Q9967